=== PATIENT | female | born 1985 | race Caucasian/White ===

== ENCOUNTER 2022-10-20 11:14 | Outpatient (CLI) | payer BC ==
[2022-10-20 12:04] LABS: THYROID STIMULATING HORMONE 2.08 uIU/mL (0.34-5.60)
[2022-10-20 12:09] LABS: PROLACTIN 3.34 ng/mL
[2022-10-20 12:31] LABS: FOLLICLE STIMULATING HORMONE 21.2 mIU/mL
[2022-10-20 12:32] LABS: LUTEINIZING HORMONE 5.48 mIU/mL
[2022-10-21 07:10] LABS: ESTRADIOL 14.4 pg/mL (.); PROGESTERONE 0.1 ng/mL (.)
[2022-10-21 19:07] LABS: FREE TESTOSTERONE(DIRECT) 2.7 pg/mL (0.0-4.2); SEX HORM BINDING GLOB SERUM 33.1 nmol/L (24.6-122.0)
== END 2022-10-20 11:15 | disposition home or self-care (01) ==
LOC: LAB 11:14
PROVIDERS: ATTEND Nurse Practitioner
DX: N92.6 Irregular menstruation, unspecified (principal)
CPT/HCPCS: 36415; 82397; 82627; 82670; 83001; 83002; 83498; 84144; 84146; 84270; 84402; 84403; 84443

== ENCOUNTER 2022-11-05 08:00 | Outpatient (CLI) | payer BC ==
[2022-11-05 22:04] LABS: BACTERIAL VAGINOSIS DNA NEGATIVE (NEGATIVE); CANDIDA GLABRATA DNA NEGATIVE (NEGATIVE); CANDIDA GROUP DNA NEGATIVE (NEGATIVE); CANDIDA KRUSEI DNA NEGATIVE (NEGATIVE); TRICHOMONAS VAGINALIS DNA NEGATIVE (NEGATIVE)
[2022-11-06 00:29] LABS: CHLAMYDIA TRACHOMATIS DNA NEGATIVE (NEGATIVE); NEISSERIA GONORRHOEAE DNA NEGATIVE (NEGATIVE)
== END 2022-11-05 23:59 | disposition home or self-care (01) ==
LOC: LAB.WC 08:00
PROVIDERS: ATTEND Nurse Practitioner
DX: Z11.3 Encounter for screening for infections with a predominantly sexual mode of transmission (principal)
CPT/HCPCS: 81514; 87491; 87591; 87661

== ENCOUNTER 2022-11-11 06:56 | Outpatient (CLI) | payer BC ==
--- NOTE | 2022-11-11 10:19 | Ultrasound Report ---
PROCEDURE: Pelvic w/Transvaginal INDICATIONS: IRREGULAR MENSTRATION TECHNIQUE: Real-time scanning was performed of the pelvic organs, with image documentation. Additional endovagi nal scanning was necessary due to incomplete visualization of the adnexal and endometrial structures by transabdominal scanning. COMPARISON: None. FINDINGS: Uterus: Uterus is anteverted and normal in size at 6.8 x 3.6 x 5.6 cm. The myometrium is homogeneou s. The endometrium measures 12 mm in combined thickness. Ovaries: The right ovary measures 3.7 x 2.9 x 3.4 cm, with a calculated ovarian volume of 19 cc. Th e left ovary measures 2.5 x 1.9 x 1.2 cm, with a calculated ovarian volume of cc. The ovaries have a normal sonographic appearance. Less than 12 follicles can be seen in each ovary. No adnexal masses are seen. Right ovarian cystic lesion as follows: Ovarian Lesion 1: Right ovary. Size: 3.2 cm. (Size >10 cm, O-RADS 3-5 features.) Composition: Unilocular cystic (O-RADS 2). Wall: Smooth (O-RADS 2 features) Septations: None (O-RADS 2 features). Papillary projections: None (O-RADS 2 features). O-RADS score and recommendations: O-RADS 2 - follow up in 8-12 weeks. Other: No pathologic free abdominal or pelvic fluid. IMPRESSION: O-RADS 2 right ovarian cystic lesion. Recommend follow-up in 8-12 weeks. Endometrial stripe measures 12 mm, within normal limits. Reviewed by: Jacinto Brito on 11/11/2022 10:18 AM PDT Approved by: Jacitno Brito on 11/11/2022 10:18 AM PDT Station ID: [id number]
== END 2022-11-11 06:57 | disposition home or self-care (01) ==
LOC: DI 06:56
PROVIDERS: ATTEND Nurse Practitioner
DX: N92.6 Irregular menstruation, unspecified (principal); Z71.89 Other specified counseling; N83.201 Unspecified ovarian cyst, right side

== ENCOUNTER 2022-11-18 13:39 | Outpatient (CLI) | payer BC ==
[2022-11-19 04:08] LABS: HBsAG SCREEN Negative (Negative); RPR Non Reactive (Non Reactive)
[2022-11-19 13:10] LABS: HSV 1 IGG TYPE SPEC <0.91 index (0.00-0.90); HSV 2 IGG TYPE SPEC <0.91 index (0.00-0.90)
[2022-11-19 15:09] LABS: HCV AB Non Reactive (Non Reactive)
[2022-11-19 16:08] LABS: HIV SCREEN 4TH GENERATION Non Reactive (Non Reactive)
== END 2022-11-18 13:40 | disposition home or self-care (01) ==
LOC: LAB 13:39
PROVIDERS: ATTEND Nurse Practitioner
DX: Z11.3 Encounter for screening for infections with a predominantly sexual mode of transmission (principal)
CPT/HCPCS: 36415; 86592; 86695; 86696; 86803; 87340; 87389

== ENCOUNTER 2023-01-04 12:26 | Outpatient (CLI) | payer BC | END 2023-01-04 12:27 | disposition home or self-care (01) | LOC: LAB 12:26 | PROVIDERS: ATTEND Obstetrics & Gynecology Reproductive Endocrinology | DX: Z31.41 Encounter for fertility testing (principal) | CPT/HCPCS: 36415; 82670; 83001 ==

== ENCOUNTER 2023-02-28 12:45 | Outpatient (CLI) | payer BC ==
[2023-02-28 13:05] LABS: BASOPHILS # (AUTO) 0.1 10^3/uL (0.0-0.1); BASOPHILS % (AUTO) 0.6 %; EOSINOPHILS # (AUTO) 0.1 10^3/uL (0.0-0.7); EOSINOPHILS % (AUTO) 0.9 %; HGB - HEMOGLOBIN 13.2 g/dL (12.0-16.0); LYMPHOCYTES # (AUTO) 2.4 10^3/uL (1.5-3.5); MEAN CORPUSCULAR HEMOGLOBIN 29.4 pg (27.0-31.0); MEAN CORPUSCULAR HGB CONC 32.2 g/dL (32.0-36.0); MEAN CORPUSCULAR VOLUME 91.3 fL (81.0-99.0); MEAN PLATELET VOLUME 9.8 fL (7.9-10.8); MONOCYTES # (AUTO) 0.7 10^3/uL (0.0-1.0); MONOCYTES % (AUTO) 6.2 %; NEUTROPHILS # (AUTO) 7.6 10^3/uL (1.5-6.6); PLT - PLATELET COUNT 310 10^3/uL (130-450); RED BLOOD COUNT 4.49 10^6/uL (4.20-5.40); WHITE BLOOD COUNT 10.8 x10^3/uL (4.8-10.8)
--- NOTE | 2023-02-28 18:48 | Ultrasound Report ---
PROCEDURE: OB First Trimester w/TV INDICATIONS: POSITIVE TEST OUTSIDE/PRIOR DATING DATA: Last menstrual period (LMP): 01/02/2023. LMP-based estimated date of delivery (SIVAN): 10/09/2023. First dating scan (date and location): 02/28/2023. Estimated date of delivery (SIVAN) from first dating scan: 10/10/2023. TECHNIQUE: Real-time scanning was performed of the fetus and maternal pelvic organs, with image documentation. Endovaginal scanning was also performed to better visualize the fetus and maternal ovaries. COMPARISON: None. FINDINGS: Intrauterine gestational sac present. Embryo: [place]-rump length 1.61 cm corresponds with an 8 week 0 day gestation Heart rate: 171 bpm. Other: No perigestational fluid collection. Measurement variability in dating: +/- 4 weeks by LMP, +/- 7 days by mean sac diameter (use before 6 weeks gestation if crown-rump length not able to be measured), +/- 5 days by crown-rump length (6-12 weeks gestation). Maternal organs: Ovaries appear within normal limits. 1.8 cm right ovarian corpus luteum cyst. No ad nexal mass. IMPRESSION: Single live intrauterine corresponds with 8 week 0 day gestation Reviewed by: Vaughn Grimes MD on 02/28/2023 5:47 PM MARIEL Approved by: Vaughn Grimes MD on 02/28/2023 5:47 PM MARIEL Station ID: [id number]
[2023-03-01 03:09] LABS: HBsAG SCREEN Negative (Negative)
[2023-03-01 07:10] LABS: HIV SCREEN 4TH GENERATION Non Reactive (Non Reactive)
[2023-03-01 08:09] LABS: HCV AB Non Reactive (Non Reactive)
[2023-03-01 09:09] LABS: VARICELLA-ZOSTER AB IGG <135 index (Immune >165)
[2023-03-02 03:11] LABS: RPR Non Reactive (Non Reactive)
== END 2023-02-28 12:46 | disposition home or self-care (01) ==
LOC: DI 12:45
PROVIDERS: ATTEND Obstetrics & Gynecology
DX: Z34.91 Encounter for supervision of normal pregnancy, unspecified, first trimester (principal); Z3A.08 8 weeks gestation of pregnancy
CPT/HCPCS: 36415; 85025; 86592; 86762; 86787; 86803; 86850; 86900; 86901; 87340; 87389

== ENCOUNTER 2023-03-23 08:00 | Outpatient (CLI) | payer BC ==
[2023-03-23 15:17] LABS: CHLAMYDIA TRACHOMATIS DNA NEGATIVE (NEGATIVE); NEISSERIA GONORRHOEAE DNA NEGATIVE (NEGATIVE); TRICHOMONAS VAGINALIS DNA NEGATIVE (NEGATIVE)
== END 2023-03-23 23:59 | disposition home or self-care (01) ==
LOC: LAB.WC 08:00
PROVIDERS: ATTEND Nurse Practitioner
DX: Z11.3 Encounter for screening for infections with a predominantly sexual mode of transmission (principal)
CPT/HCPCS: 87491; 87591; 87661

== ENCOUNTER 2023-03-29 13:27 | Outpatient (CLI) | payer BC | END 2023-03-29 13:28 | disposition home or self-care (01) | LOC: LAB 13:27 | PROVIDERS: ATTEND Nurse Practitioner | DX: Z53.9 Procedure and treatment not carried out, unspecified reason (principal) ==

== ENCOUNTER 2023-05-20 13:47 | Outpatient (CLI) | payer BC ==
--- NOTE | 2023-05-20 15:56 | Ultrasound Report ---
PROCEDURE: OB Detailed Eval INDICATIONS: SUPERVISION OF OUTSIDE/PRIOR DATING DATA: Last menstrual period (LMP): 01/02/2023. LMP-based estimated date of delivery (SIVAN): 10/09/2023. First dating scan (date and location): 02/28/2023. Estimated date of delivery (SIVAN) from first dating scan: 10/10/2023. The below data below was generated using the ultrasound SIVAN of 10/10/2023 TECHNIQUE: Real-time scanning was performed of the fetus, with image documentation and biometric measurements. Endovaginal scanning: Not performed COMPARISON: Ultrasound 02/28/2023 FINDINGS: General: A single living intrauterine gestation is present. Presentation: Cephalic Placenta: Placental position is fundal, without previa. Amniotic fluid index: 13.8 cm, within normal limits for gestational age. heart rate: 150 beats per minute. Maternal cervical canal: 3.1 cm long; normal length is 2.5 cm or more. biometrics: Biparietal diameter: 4.7 cm, 20 weeks and 3 days Head circumference: 18.1 cm, 20 weeks and 4 days Abdominal circumference: 15.3 cm, 20 weeks and 4 days Femur length: 3.2 cm, 20 weeks and 2 days Estimated gestational age from initial scan: 19 weeks and 5 days Composite gestational age from present scan: 20 weeks and 2 days Estimated weight and percentile: 354 g, 85th percentile Measurement variability in biometric dating: +/- 10 days from 12-20 weeks gestation, +/- 2 weeks from 20-30 weeks gestation, +/- 3 weeks at 30 weeks gestation or later. Anatomic survey: Neuro: Ventricles are normal at less than 10 mm. Cisterna magna is normal at 3-11 mm. Cerebellum i s normal in size and morphology. Nuchal skin fold: Normal at less than 6 mm between 14 and 20 weeks gestational age. Face: Nose and lips, facial profile are normal. Spine: No evidence for spina bifida. Heart: 4-chambered heart is present, with normal ventricular outflow tracts. Diaphragm: Diaphragm is intact. Stomach: Left-sided stomach is present. Kidneys: No hydronephrosis. Normal is less than 5 mm in 2nd trimester, less than 7 mm in 3rd trimester. Cord: 3 vessel cord has orthotopic insertion. Bladder: Normal in size. Extremities: All 4 extremities are visualized. IMPRESSION: 1.Single live intrauterine consistent with 20 weeks and 2 days. 2.Normal anatomic survey. Reviewed by: Michael Deng MD on 05/20/2023 3:55 PM PDT Approved by: Michael Deng MD on 05/20/2023 3:55 PM PDT Station ID: [id number]
== END 2023-05-20 13:48 | disposition home or self-care (01) ==
LOC: DI 13:47
PROVIDERS: ATTEND Obstetrics & Gynecology
DX: Z34.92 Encounter for supervision of normal pregnancy, unspecified, second trimester (principal)

== ENCOUNTER 2023-05-26 10:46 | Outpatient (CLI) | payer BC ==
[2023-05-26 11:10] LABS: BASOPHILS # (AUTO) 0.1 10^3/uL (0.0-0.1); BASOPHILS % (AUTO) 0.5 %; EOSINOPHILS # (AUTO) 0.1 10^3/uL (0.0-0.7); EOSINOPHILS % (AUTO) 1.1 %; HGB - HEMOGLOBIN 11.6 g/dL (12.0-16.0); LYMPHOCYTES # (AUTO) 2.1 10^3/uL (1.5-3.5); LYMPHOCYTES % (AUTO) 17.9 %; MEAN CORPUSCULAR HEMOGLOBIN 29.4 pg (27.0-31.0); MEAN CORPUSCULAR HGB CONC 32.2 g/dL (32.0-36.0); MEAN CORPUSCULAR VOLUME 91.1 fL (81.0-99.0); MONOCYTES # (AUTO) 0.7 10^3/uL (0.0-1.0); MONOCYTES % (AUTO) 5.5 %; NEUTROPHILS # (AUTO) 8.8 10^3/uL (1.5-6.6); NEUTROPHILS % (AUTO) 74.3 %; PLT - PLATELET COUNT 313 10^3/uL (130-450); RED BLOOD COUNT 3.95 10^6/uL (4.20-5.40); RED CELL DISTRIBUTION WIDTH 13.3 % (12.0-15.0); WHITE BLOOD COUNT 11.9 x10^3/uL (4.8-10.8)
[2023-05-26 11:11] LABS: ALBUMIN 3.7 g/dL (3.2-5.5); ALBUMIN/GLOBULIN RATIO 1.3 (1.0-2.2); BILIRUBIN,TOTAL 0.2 mg/dL (0.2-1.0); CALCIUM 9.5 mg/dL (8.5-10.3); CREATININE 0.6 mg/dL (0.6-1.3); POTASSIUM 4.1 mmol/L (3.5-4.5); TOTAL PROTEIN 6.5 g/dL (6.4-8.9); URIC ACID 4.3 mg/dL (2.3-6.6)
[2023-05-26 11:58] LABS: CREATININE,URINE 68.3 mg/dL; PROTEIN/CREATININE RATIO,URINE 0.1 (<=0.2)
== END 2023-05-26 10:47 | disposition home or self-care (01) ==
LOC: LAB 10:46
PROVIDERS: ATTEND Nurse Practitioner
DX: R03.0 Elevated blood-pressure reading, without diagnosis of hypertension (principal)
CPT/HCPCS: 36415; 80053; 82570; 84156; 84550; 85025

== ENCOUNTER 2023-06-24 15:01 | Outpatient (CLI) | payer BC ==
[2023-06-24 17:54] LABS: BACTERIAL VAGINOSIS DNA NEGATIVE (NEGATIVE); CANDIDA GLABRATA DNA NEGATIVE (NEGATIVE); CANDIDA GROUP DNA NEGATIVE (NEGATIVE); CANDIDA KRUSEI DNA NEGATIVE (NEGATIVE); TRICHOMONAS VAGINALIS DNA NEGATIVE (NEGATIVE)
== END 2023-06-24 15:02 | disposition home or self-care (01) ==
LOC: LAB 15:01
PROVIDERS: ATTEND Nurse Practitioner
DX: N89.8 Other specified noninflammatory disorders of vagina (principal)
CPT/HCPCS: 81514

== ENCOUNTER 2023-07-13 09:17 | Outpatient (CLI) | payer BC ==
[2023-07-13 11:24] VITALS: BP 124/76; O2SAT 98
[2023-07-13 11:41] LABS: CREATININE,URINE 65.7 mg/dL; PROTEIN/CREATININE RATIO,URINE 0.1 (<=0.2)
[2023-07-13 12:08] LABS: BASOPHILS # (AUTO) 0.1 10^3/uL (0.0-0.1); BASOPHILS % (AUTO) 0.5 %; EOSINOPHILS # (AUTO) 0.1 10^3/uL (0.0-0.7); EOSINOPHILS % (AUTO) 0.7 %; HCT - HEMATOCRIT 35.3 % (37.0-47.0); HGB - HEMOGLOBIN 11.4 g/dL (12.0-16.0); LYMPHOCYTES # (AUTO) 1.8 10^3/uL (1.5-3.5); LYMPHOCYTES % (AUTO) 16.5 %; MEAN CORPUSCULAR HEMOGLOBIN 29.5 pg (27.0-31.0); MEAN CORPUSCULAR HGB CONC 32.3 g/dL (32.0-36.0); MEAN CORPUSCULAR VOLUME 91.5 fL (81.0-99.0); MEAN PLATELET VOLUME 10.1 fL (7.9-10.8); MONOCYTES # (AUTO) 0.6 10^3/uL (0.0-1.0); MONOCYTES % (AUTO) 5.1 %; NEUTROPHILS # (AUTO) 8.2 10^3/uL (1.5-6.6); NEUTROPHILS % (AUTO) 76.5 %; PLT - PLATELET COUNT 323 10^3/uL (130-450); RED BLOOD COUNT 3.86 10^6/uL (4.20-5.40); RED CELL DISTRIBUTION WIDTH 13.2 % (12.0-15.0); WHITE BLOOD COUNT 10.7 x10^3/uL (4.8-10.8)
[2023-07-13 12:36] LABS: ALBUMIN 3.6 g/dL (3.2-5.5); ALBUMIN/GLOBULIN RATIO 1.2 (1.0-2.2); BILIRUBIN,TOTAL 0.3 mg/dL (0.2-1.0); CALCIUM 9.4 mg/dL (8.5-10.3); CREATININE 0.5 mg/dL (0.6-1.3); POTASSIUM 3.8 mmol/L (3.5-4.5); TOTAL PROTEIN 6.5 g/dL (6.4-8.9)
--- NOTE | 2023-07-13 14:12 | Ultrasound Report ---
PROCEDURE: Abdomen Limited INDICATIONS: RUQ pain, evaluate gall bladder. 27 weeks pregnan TECHNIQUE: Real-time focused scanning was performed of the abdomen, with image documentation. COMPARISONS: OB ultrasound 05/20/2023 FINDINGS: Liver: Liver is normal in size and homogeneous in echotexture. Gallbladder: Unremarkable. Biliary ducts: Intrahepatic bile ducts are non-dilated. Extrahepatic bile duct caliber measures 3 m m. Normal is 6-7 mm or less in diameter, or 10 mm or less post-cholecystectomy. Pancreas: Visualized portions of the pancreas are sonographically normal. Right kidney: Normal in size and echotexture. Right kidney measures 10.9 cm long. No hydronephrosis or nephrolithiasis. No solid masses. No complex renal cystic lesions which require follow-up. Aorta: Visualized aorta is normal in caliber at less than 3 cm. IVC: Intrahepatic inferior vena cava is patent. Miscellaneous: No free abdominal fluid. IMPRESSION: Unremarkable abdominal ultrasound. Reviewed by: Kelly Vaca MD on 07/13/2023 2:11 PM PST Approved by: Kelly Vaca MD on 07/13/2023 2:11 PM PST Station ID: [id number]
--- NOTE | 2023-07-14 10:28 | PROVIDER PROGRESS NOTE ---
- HPI Chief Complaint: Other (RUQ pain.) Current : Vital Signs Temperature 98.0 F 07/13/23 09:25 Heart Rate 92 07/13/23 09:25 Respiratory Rate 18 07/13/23 09:25 Blood Pressure 136/72 H 07/13/23 09:25 Temperature 97.6 F L 07/13/23 11:17 Heart Rate 86 07/13/23 11:17 Respiratory Rate 18 07/13/23 11:17 Blood Pressure 124/76 07/13/23 11:17 O2 Saturation 98 07/13/23 11:17 If not protocol: Oxygen Flow, liters/minute - Exam Patient is at 27 w 3 d presents with right upper quadrant pain. seems like musculoskelatal to her. 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 under ribs and a bit lower. baby is moving well. does not feel like contractions. on evaluation in triage, vss. bp < 140/90, FHT normal for gestational age. no contractions on monitor. patient is uncomfortable resting on the bed. abdominal exam: tender over ribs in RUQ of abd. seems also tender under the ribs. no rebound or guarding. fundus does not feel tender and there are not palpable contractions. - Procedures Findings: labs are normal, except elevated sugar. RUQ ultrasound to rule out any gallbladder or renal issue causing pain and is negative. - Plan Plan: seems pain is from ribs - musculoskelatal. discharge home. ok to return to work. recommend heat or cold, consider chiropractor to help with rib pain. tylenol prn.
== END 2023-07-13 13:45 | disposition home or self-care (01) ==
LOC: WFO 09:17 → FBP 09:18 → WFO 13:45
PROVIDERS: ATTEND Obstetrics & Gynecology
DX: O99.891 Other specified diseases and conditions complicating pregnancy (principal); R10.11 Right upper quadrant pain; Z3A.27 27 weeks gestation of pregnancy
CPT/HCPCS: 36415; 80053; 82570; 82950; 84156; 85025; 99214; 99215

== ENCOUNTER 2023-07-18 09:10 | Outpatient (CLI) | payer BC ==
[2023-07-18 10:42] LABS: HGB - HEMOGLOBIN 11.5 g/dL (12.0-16.0); MEAN CORPUSCULAR HEMOGLOBIN 29.2 pg (27.0-31.0); MEAN CORPUSCULAR HGB CONC 31.9 g/dL (32.0-36.0); MEAN CORPUSCULAR VOLUME 91.4 fL (81.0-99.0); MEAN PLATELET VOLUME 9.7 fL (7.9-10.8); RED BLOOD COUNT 3.94 10^6/uL (4.20-5.40); RED CELL DISTRIBUTION WIDTH 13.3 % (12.0-15.0); WHITE BLOOD COUNT 10.9 x10^3/uL (4.8-10.8)
== END 2023-07-18 09:11 | disposition home or self-care (01) ==
LOC: LAB 09:10
PROVIDERS: ATTEND Nurse Practitioner
DX: O99.810 Abnormal glucose complicating pregnancy (principal); O09.529 Supervision of elderly multigravida, unspecified trimester; Z36.89 Encounter for other specified antenatal screening
CPT/HCPCS: 36415; 82950; 85027; 86850

== ENCOUNTER 2023-08-02 18:45 | Outpatient (CLI) | payer BC ==
--- NOTE | 2023-08-03 11:01 | Ultrasound Report ---
PROCEDURE: OB Follow up INDICATIONS: ABN GLUCOSE TEST OUTSIDE/PRIOR DATING DATA: Last menstrual period (LMP): 01/02/2023. LMP-based estimated date of delivery (SIVAN): 10/09/2023. First dating scan (date and location): 02/28/2023. Estimated date of delivery (SIVAN) from first dating scan: 10/10/2023. The below data below was generated using the ultrasound SIVAN of 10/10/2023 TECHNIQUE: Real-time scanning was performed of the fetus, with image documentation and biometric measurements. Endovaginal scanning: Not performed. COMPARISON: 05/20/2023 FINDINGS: General: A single living intrauterine gestation is present. Presentation: Vertex Placenta: Placental position is posterior, without previa. Amniotic fluid index: 18.2 cm, within normal limits for gestational age. heart rate: 153 beats per minute. Maternal cervical canal: Not well seen at late stage of biometrics: Biparietal diameter: 8.05 cm, 32 weeks 2 days, 93.1 percentile Head circumference: 30.46 cm, 33 weeks 6 days, 97.1 percentile Abdominal circumference: 28.34 cm, 32 weeks 3 days, 94.8 percentile Femur length: 6.11 cm, 31 weeks 5 days, 78.8 percentile Estimated gestational age from initial scan: 30 weeks 1 day Composite gestational age from present scan: 32 weeks 4 days Estimated weight and percentile: 1950.2 g, 96.5 percentile Measurement variability in biometric dating: +/- 10 days from 12-20 weeks gestation, +/- 2 weeks from 20-30 weeks gestation, +/- 3 weeks at 30 weeks gestation or more. Other: Not applicable. IMPRESSION: 1. Living third trimester intrauterine with no sonographic evidence of complications. 2. Current ultrasound age is 17 days greater than clinical age based on initial first trimester ultra sound. Reviewed by: Francis Shaw MD on 08/03/2023 10:59 AM PST Approved by: Francis Shaw MD on 08/03/2023 10:59 AM PST Station ID: [id number]
== END 2023-08-02 18:46 | disposition home or self-care (01) ==
LOC: DI 18:45
PROVIDERS: ATTEND Nurse Practitioner
DX: O99.810 Abnormal glucose complicating pregnancy (principal); Z3A.32 32 weeks gestation of pregnancy

== ENCOUNTER 2023-08-18 11:21 | Outpatient (CLI) | payer BC ==
[2023-08-18 11:34] VITALS: O2SAT 98
[2023-08-18 12:23] LABS: BILIRUBIN,URINE NEGATIVE (NEGATIVE); GLUCOSE, URINE (UA) NEGATIVE (NEGATIVE); KETONES,URINE (UA) 15 mg/dL (NEGATIVE); LEUKOCYTE ESTERASE, URINE NEGATIVE (NEGATIVE); NITRITE,URINE NEGATIVE (NEGATIVE); OCCULT BLOOD,URINE NEGATIVE (NEGATIVE); PROTEIN,URINE NEGATIVE (NEGATIVE); UROBILINOGEN,URINE 0.2 (NORMAL) E.U./dL (NORMAL)
[2023-08-18 12:26] LABS: CLARITY,URINE HAZY (CLEAR); RBC,URINE None Seen /HPF (0-5); SQUAMOUS EPITHELIAL CELL,UR MOD Squamous (<= Few); WBC,URINE 0-3 /HPF (0-5)
[2023-08-18 12:27] LABS: BACTERIA,URINE Few /HPF (None Seen)
--- NOTE | 2023-08-18 12:59 | PROVIDER PROGRESS NOTE ---
- HPI Chief Complaint: Labor Current : Vital Signs Temperature 99.3 F 08/18/23 11:32 Heart Rate 87 08/18/23 11:32 Respiratory Rate 17 08/18/23 11:32 Blood Pressure 130/77 08/18/23 11:32 O2 Saturation 98 08/18/23 11:32 Temperature 97.8 F 08/18/23 12:17 Heart Rate 87 08/18/23 11:32 Respiratory Rate 17 08/18/23 11:32 Blood Pressure 130/77 08/18/23 11:32 O2 Saturation 98 08/18/23 11:32 If not protocol: Oxygen Flow, liters/minute - Procedures OB Procedure Performed: NST Diagnosis/Indication for NST: labor NST Procedure: NST Procedure Start Date 08/18/23 Start Time 12:10 Stop Time 12:30 Vibroacoustic Stimulation Used No Patient States Movement Yes - Plan Plan: Patient is a 37-year-old -0-1-0 at 32 weeks 4 days gestation who presented today for an acute visit due to back pain. She says starting last night she had back pain around her back feels her abdomen tightening and low pelvic pressure. She feels good movement. No leaking or bleeding. She does say she has been under a lot of stress. Work is getting more difficult for her being uncomfortable and does not know if she can handle this with current significant pain. The pain does come and go and will have several contraction type feelings close together then space out. Her mother was in a car accident and had a stroke and is still in the hospital. Her sister is spent time with her mother now. This is difficult as there is was to support her during labor as [place]. Physical Exam Constitutional: alert, no acute distress, well hydrated, well developed, well nourished, appropriate dress. Cardiovascular: Regular rate and rhythm. Respiratory: no respiratory distress. Abdomen: nondistended, nontender, no guarding. Psych: affect and mood appropriate, normal interaction, good eye contact. SVE: 0/0/-3 FHT: 145 beats per baseline, moderate variability, accelerations present, no decelerations. Reactive NST [place]: Periods of quiescence followed by contraction approximate every 4 to 8 minutes. Irregular contractions that come in waves. Cervical length: 4.5 cm UA unremarkable Vaginosis swab unremarkable Assessment and plan 37-year-old -0-1-0 at 32 weeks gestation with false labor 1. False labor -Observed in triage for approximately 5 hours with 3 cervical exam showing closed cervix. Cervical length showing 4.5 cm which is highly correlated with not going into labor and discussed this with patient. -Discussed that contractions are not rare and that most do not progress to delivery. Encouraged precautions as she lives alone and should call with any change in status. -Can try 1 dose of nifedipine to see if she has effect. Discussed we do not usually do this, due to her significant discomfort with contractions, will like to try dose. -She has rearrange her work schedule to have tomorrow off. Discussed that her life stressors may be causing her more pains. Encouraged hydration, pain control with Tylenol, warm baths. 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
[2023-08-18 14:21] LABS: BACTERIAL VAGINOSIS DNA NEGATIVE (NEGATIVE); CANDIDA GLABRATA DNA NEGATIVE (NEGATIVE); CANDIDA GROUP DNA NEGATIVE (NEGATIVE); CANDIDA KRUSEI DNA NEGATIVE (NEGATIVE); TRICHOMONAS VAGINALIS DNA NEGATIVE (NEGATIVE)
[2023-08-18] MEDS: NIFEdipine ER 30 MG TABLET PO ONE (16:39)
[2023-08-18 16:44] VITALS: BP 139/74
--- NOTE | 2023-08-18 17:23 | Ultrasound Report ---
PROCEDURE: OB Limited INDICATIONS: ctx OUTSIDE/PRIOR DATING DATA: Last menstrual period (LMP): 01/02/2023. LMP-based estimated date of delivery (SIVAN): 10/09/2023. First dating scan (date and location): 02/28/2023. Estimated date of delivery (SIVAN) from first dating scan: 10/10/2023. The below data below was generated using the ultrasound SIVAN of 10/10/2023 TECHNIQUE: Real-time scanning was performed of the fetus, with image documentation. Endovaginal scanning: Performed COMPARISON: None. FINDINGS: A single living intrauterine gestation is present. Presentation: Vertex Placenta: Not evaluated. Amniotic fluid index not evaluated heart rate: 136 beats per minutes. Maternal cervical canal: 4.6 cm long; normal length is 2.5 cm or more. IMPRESSION: Cervix is long and closed, measuring 4.6 cm. Reviewed by: Jacinto Brito MD on 08/18/2023 5:21 PM PST Approved by: Jacinto Brito MD on 08/18/2023 5:21 PM PST Station ID: [id number]
== END 2023-08-18 17:11 | disposition home or self-care (01) ==
LOC: WFO 11:21 → FBP 11:22 → WFO 17:11
PROVIDERS: ATTEND Obstetrics & Gynecology
DX: O47.03 False labor before 37 completed weeks of gestation, third trimester (principal); O99.810 Abnormal glucose complicating pregnancy; Z3A.32 32 weeks gestation of pregnancy; O99.891 Other specified diseases and conditions complicating pregnancy; M54.9 Dorsalgia, unspecified; O99.343 Other mental disorders complicating pregnancy, third trimester; F43.9 Reaction to severe stress, unspecified
CPT/HCPCS: 59025; 76815; 81001; 81514; 99215; A9270; 87086

== ENCOUNTER 2023-08-22 09:38 | Outpatient (CLI) | payer BC ==
[2023-08-22 10:48] VITALS: BP 118/68
--- NOTE | 2023-08-22 11:30 | PROCEDURE REPORT ---
- HPI Diagnosis/Indication for NST: Gestational Diabetes Current EDU 10/09/23 Gestation 33 Weeks and 1 Days 2 Para 0 Vital Signs Temperature 98.1 F 08/22/23 10:36 Heart Rate 90 08/22/23 10:36 Respiratory Rate 16 08/22/23 10:36 Blood Pressure 118/68 08/22/23 10:36 Temperature 98.1 F 08/22/23 10:36 Heart Rate 90 08/22/23 10:36 Respiratory Rate 16 08/22/23 10:36 Blood Pressure 118/68 08/22/23 10:36 O2 Saturation If not protocol: Oxygen Flow, liters/minute - NST Procedure NST Procedure Start Date 08/22/23 Start Time 09:50 Stop Time 10:36 Vibroacoustic Stimulation Used No Patient States Movement Yes - Results and Plan Plan: Patient is a 37-year-old G2P 33 weeks gestation here for NST. NST Performed 08/22/2023 NST Read 08/22/2023 FHT: 140 bpm baseline, moderate variability, accelerations present, no decelerations. Reactive NST [place]: Occasional Diagnosis 33 weeks gestation Gestational diabetes Continue with scheduled NST.
== END 2023-08-22 10:45 | disposition home or self-care (01) ==
LOC: WFO 09:38 → FBP 09:39 → WFO 10:45
PROVIDERS: ATTEND Obstetrics & Gynecology
DX: O24.419 Gestational diabetes mellitus in pregnancy, unspecified control (principal); Z3A.33 33 weeks gestation of pregnancy
CPT/HCPCS: 59025

== ENCOUNTER 2023-08-25 19:40 | Outpatient (CLI) | payer BC ==
[2023-08-25 20:43] VITALS: BP 121/69
--- NOTE | 2023-08-26 00:48 | PROCEDURE REPORT ---
- HPI Diagnosis/Indication for NST: Gestational Diabetes Current EDU 10/09/23 Gestation 33 Weeks and 4 Days 2 Para 0 Vital Signs Temperature 98.8 F 08/25/23 19:48 Heart Rate 81 08/25/23 19:48 Respiratory Rate 16 08/25/23 19:48 Blood Pressure 121/69 08/25/23 19:48 Temperature 98.8 F 08/25/23 19:48 Heart Rate 81 08/25/23 19:48 Respiratory Rate 16 08/25/23 19:48 Blood Pressure 121/69 08/25/23 19:48 O2 Saturation If not protocol: Oxygen Flow, liters/minute - NST Procedure NST Procedure Start Date 08/25/23 Start Time 19:47 Stop Time 20:18 Vibroacoustic Stimulation Used No Patient States Movement Yes - Results and Plan Findings/Impression: NST: 130 mod [place] + A cells no D cells, reactive Plan: 38yo here for NST 2'2 gestational diabetes at 33w doing well, reactive NST OK to D/C home with precautions and to continue scheduled care.
== END 2023-08-25 20:36 | disposition home or self-care (01) ==
LOC: WFO 19:40 → FBP 19:41 → WFO 20:36
PROVIDERS: ATTEND Obstetrics & Gynecology
DX: O24.419 Gestational diabetes mellitus in pregnancy, unspecified control (principal); Z3A.33 33 weeks gestation of pregnancy
CPT/HCPCS: 59025

== ENCOUNTER 2023-08-26 08:30 | Outpatient (CLI) | payer BC ==
--- NOTE | 2023-08-26 10:52 | Ultrasound Report ---
PROCEDURE: OB Follow up INDICATIONS: ABN GLUCOSE TEST OUTSIDE/PRIOR DATING DATA: Last menstrual period (LMP): 01/02/2023. LMP-based estimated date of delivery (SIVAN): 10/09/2023. First dating scan (date and location): 02/28/2023. Estimated date of delivery (SIVAN) from first dating scan: 10/10/2023. The below data below was generated using the ultrasound SIVAN of 10/06/2023 TECHNIQUE: Real-time scanning was performed of the fetus, with image documentation and biometric measurements. Endovaginal scanning: Not performed. COMPARISON: Most recent exam from 08/18/2023 FINDINGS: General: A single living intrauterine gestation is present. Presentation: Vertex Placenta: Placental position is posterior and fundal, without previa. Amniotic fluid index: 18 cm, largest pocket is 6.8 cm, normal for gestational age. heart rate: 145 beats per minute. Maternal cervical canal: 3.6 cm long; normal length is 2.5 cm or more. biometrics: Biparietal diameter: 8.8 cm, 35 weeks 6 days, 94th percentile Head circumference: 32.4 cm, 36 weeks 5 days, 86th percentile Abdominal circumference: 32.1 cm, 36 weeks 6 days, 97th percentile Femur length: 6.6 cm, 34 weeks 1 day, 51st percentile Estimated gestational age from initial scan: 33 weeks 5 days Composite gestational age from present scan: 35 weeks 5 days Estimated weight and percentile: 2715 g, 91st percentile Measurement variability in biometric dating: +/- 10 days from 12-20 weeks gestation, +/- 2 weeks from 20-30 weeks gestation, +/- 3 weeks at 30 weeks gestation or more. Biophysical profile: Tone: 2/2 Movement: 2/2 Respiration: 2/2 Largest pocket amniotic fluid: 2/2 IMPRESSION: 1. Single live intrauterine with an estimated weight at the 91st percentile. 2. Composite gestational age is 2 weeks ahead of the estimated gestational age. 3. Biophysical profile score is normal. Reviewed by: Devora Barraza MD on 08/26/2023 10:50 AM PST Approved by: Devora Barraza MD on 08/26/2023 10:50 AM PST Station ID: [id number]
--- NOTE | 2023-08-26 11:07 | Ultrasound Report ---
PROCEDURE: OB Biophysical Profile INDICATIONS: ABN GLUCOSE TEST OUTSIDE/PRIOR DATING DATA: Last menstrual period (LMP): 01/02/2023. LMP-based estimated date of delivery (SIVAN): 10/09/2023. First dating scan (date and location): 02/28/2023. Estimated date of delivery (SIVAN) from first dating scan: 10/10/2023. The below data below was generated using the ultrasound SIVAN of 10/06/2023 TECHNIQUE: Real-time scanning was performed of the fetus, with image documentation and biometric measurements. Biophysical profile score was obtained. Endovaginal scanning: Not performed. COMPARISON: Most recent exam from 08/18/2023 FINDINGS: General: A single living intrauterine gestation is present. Presentation: Vertex Placenta: Placental position is posterior and fundal, without previa. Amniotic fluid index: 18 cm, largest pocket is 6.8 cm, normal for gestational age. heart rate: 145 beats per minute. Maternal cervical canal: 3.6 cm long; normal length is 2.5 cm or more. biometrics: Biparietal diameter: 8.8 cm, 35 weeks 6 days, 94th percentile Head circumference: 32.4 cm, 36 weeks 5 days, 86th percentile Abdominal circumference: 32.1 cm, 36 weeks 6 days, 97th percentile Femur length: 6.6 cm, 34 weeks 1 day, 51st percentile Estimated gestational age from initial scan: 33 weeks 5 days Composite gestational age from present scan: 35 weeks 5 days Estimated weight and percentile: 2715 g, 91st percentile Measurement variability in biometric dating: +/- 10 days from 12-20 weeks gestation, +/- 2 weeks from 20-30 weeks gestation, +/- 3 weeks at 30 weeks gestation or more. Biophysical profile: Tone: 2/2 Movement: 2/2 Respiration: 2/2 Largest pocket amniotic fluid: 2/2 IMPRESSION: 1. Single live intrauterine with an estimated weight at the 91st percentile. 2. Composite gestational age is 2 weeks ahead of the estimated gestational age. 3. Biophysical profile score is normal. Reviewed by: Devora Barraza MD on 08/26/2023 11:06 AM PST Approved by: Devora Barraza MD on 08/26/2023 11:06 AM PST Station ID: [id number]
== END 2023-08-26 08:31 | disposition home or self-care (01) ==
LOC: DI 08:30
PROVIDERS: ATTEND Nurse Practitioner
DX: O24.419 Gestational diabetes mellitus in pregnancy, unspecified control (principal); Z3A.35 35 weeks gestation of pregnancy

== ENCOUNTER 2023-08-29 19:32 | Outpatient (CLI) | payer BC ==
[2023-08-29 20:02] VITALS: BP 136/83
--- NOTE | 2023-08-29 20:28 | PROCEDURE REPORT ---
- HPI Current EDU 10/09/23 Gestation 34 Weeks and 1 Days 2 Para 0 Vital Signs Temperature 99 F 08/29/23 19:46 Heart Rate 97 08/29/23 19:46 Respiratory Rate 16 08/29/23 19:46 Blood Pressure 136/83 H 08/29/23 19:46 Temperature 99 F 08/29/23 19:46 Heart Rate 97 08/29/23 19:46 Respiratory Rate 16 08/29/23 19:46 Blood Pressure 136/83 H 08/29/23 19:46 O2 Saturation If not protocol: Oxygen Flow, liters/minute - NST Procedure NST Procedure Start Date 08/29/23 Start Time 19:41 Stop Time 20:04 Vibroacoustic Stimulation Used No Patient States Movement Yes - Results and Plan Plan: Patient is a 38-year-old G2, P0 at 34 weeks 1 day gestation here for NST. NST Performed 08/29/2023 NST Read 08/29/2023 FHT: 145 bpm baseline, moderate variability, accelerations present, no decelerations. Reactive NST [place]: Quiescent Diagnosis 34 weeks gestation Gestational diabetes Continue with scheduled NST.
== END 2023-08-29 20:09 | disposition home or self-care (01) ==
LOC: WFO 19:32 → FBP 19:34 → WFO 20:09
PROVIDERS: ATTEND Obstetrics & Gynecology
DX: O24.419 Gestational diabetes mellitus in pregnancy, unspecified control (principal); Z3A.34 34 weeks gestation of pregnancy
CPT/HCPCS: 59025

== ENCOUNTER 2023-09-01 09:53 | Outpatient (CLI) | payer BC ==
[2023-09-01 10:14] VITALS: BP 121/56
--- NOTE | 2023-09-01 13:05 | PROCEDURE REPORT ---
- HPI Current EDU 10/09/23 Gestation 34 Weeks and 4 Days 2 Para 0 Vital Signs Temperature 98.1 F 09/01/23 10:05 Heart Rate 97 09/01/23 10:05 Respiratory Rate 16 09/01/23 10:05 Blood Pressure 121/56 L 09/01/23 10:05 Temperature 98.1 F 09/01/23 10:05 Heart Rate 97 09/01/23 10:05 Respiratory Rate 16 09/01/23 10:05 Blood Pressure 121/56 L 09/01/23 10:05 O2 Saturation If not protocol: Oxygen Flow, liters/minute - NST Procedure NST Procedure Start Date 09/01/23 Start Time 10:00 Stop Time 10:28 Vibroacoustic Stimulation Used No Patient States Movement Yes - Results and Plan Plan: Patient is a 38-year-old -0-1-0 at 34 weeks 4 days gestation here for NST. NST Performed 09/01/2023 NST Read 09/01/2023 FHT: 150 bpm baseline, moderate variability, accelerations present, no decelerations. Reactive NST [place]: Quiescent Diagnosis 34 weeks gestation Gestational diabetes, A1 Continue with scheduled NST.
== END 2023-09-01 10:45 | disposition home or self-care (01) ==
LOC: WFO 09:53 → FBP 09:54 → WFO 10:45
PROVIDERS: ATTEND Obstetrics & Gynecology
DX: O24.410 Gestational diabetes mellitus in pregnancy, diet controlled (principal); Z3A.34 34 weeks gestation of pregnancy
CPT/HCPCS: 59025

== ENCOUNTER 2023-09-05 09:59 | Outpatient (CLI) | payer BC ==
[2023-09-05 10:26] VITALS: BP 118/64
--- NOTE | 2023-09-05 18:08 | PROCEDURE REPORT ---
- HPI Diagnosis/Indication for NST: Gestational Diabetes Current EDU 10/09/23 Gestation 35 Weeks and 1 Days 2 Para 0 Vital Signs Temperature 98.2 F 09/05/23 10:05 Heart Rate 91 09/05/23 10:05 Respiratory Rate 18 09/05/23 10:05 Blood Pressure 118/64 09/05/23 10:05 Temperature 98.2 F 09/05/23 10:05 Heart Rate 91 09/05/23 10:05 Respiratory Rate 18 09/05/23 10:05 Blood Pressure 118/64 09/05/23 10:05 O2 Saturation If not protocol: Oxygen Flow, liters/minute - NST Procedure NST Procedure Start Date 09/05/23 Start Time 10:10 Stop Time 10:32 Vibroacoustic Stimulation Used No Patient States Movement Yes - Results and Plan Plan: Patient is a 38-year-old -0-1-0 at 35 weeks 1 day gestation here for NST. NST Performed 09/05/2023 NST Read 09/05/2023 FHT: 145 bpm baseline, moderate variability, accelerations present, no decelerations. Reactive NST [place]: Occasional Diagnosis 35 weeks gestation Gestational diabetes Continue with scheduled NST.
== END 2023-09-05 10:45 | disposition home or self-care (01) ==
LOC: WFO 09:59 → FBP 10:01 → WFO 10:45
PROVIDERS: ATTEND Obstetrics & Gynecology
DX: O24.419 Gestational diabetes mellitus in pregnancy, unspecified control (principal); Z3A.35 35 weeks gestation of pregnancy
CPT/HCPCS: 59025

== ENCOUNTER 2023-09-09 09:55 | Outpatient (CLI) | payer BC ==
[2023-09-09 10:12] VITALS: BP 105/52; O2SAT 97
--- NOTE | 2023-09-09 17:44 | Labor Flowsheet ---
Labor Flowsheet Datetime Report Generated by CPN: 09/09/2023 17:43 Datetime: 09/09/2023 17:39 VITAL SIGNS NBP Sys/Yamile/Mean (mmHg): 132 : 77 : 88 Pulse: 93 SpO2 (%): 97 LaborFlag: OB Triage Datetime: 09/09/2023 10:26 COMMUNICATION Communication: Call/Page Placed to Provider Communication Comments: Pt. has BPP scheduled for 1045. Datetime: 09/09/2023 10:19 PATIENT CARE Patient Position/Activity: Left Lateral Datetime: 09/09/2023 10:07 Temperature (C): 36.8 Datetime: 09/09/2023 10:00 Stage of : OB Triage Datetime: 08/25/2023 20:15 Frequency (min): none Quality: Mild Pattern: Normal: <= 5 Contractions in 10 Minutes Resting Tone (Palpate): Relaxed ASSESSMENT A Monitor Mode: External US FHR Baseline Rate : 135 Variability: Moderate 6-25 bpm Accelerations: 15X15 Decelerations: None Category: Category I Datetime: 08/25/2023 19:46 Patient Care Comments: , 33.4 week patient here for scheduled NST. Patient denies LOF and vagin al bleeding, positive movement and occasional contractions. EFMs explained and applied x2. Pat ient denies additional needs at this time. Call light within reach. Datetime: 08/18/2023 14:00 Duration (sec): 60-95 Datetime: 08/18/2023 13:00 UTERINE ACTIVITY Monitor Mode: External Monitor Interventions for UA: [place] Adjusted
--- NOTE | 2023-09-09 17:50 | Ultrasound Report ---
PROCEDURE: OB Biophysical Profile INDICATIONS: GESTATIONAL DIABETES OUTSIDE/PRIOR DATING DATA: Last menstrual period (LMP): 01/02/2023. LMP-based estimated date of delivery (SIVAN): 10/09/2023. First dating scan (date and location): 02/28/2023. Estimated date of delivery (SIVAN) from first dating scan: 10/10/2023. The below data below was generated using the working SIVAN of 10/10/2023 TECHNIQUE: Real-time scanning was performed of the fetus, with image documentation and biometric ryan surements. Biophysical profile was also obtained. Endovaginal scanning: None COMPARISON: None. FINDINGS: General: A single living intrauterine gestation is present. Presentation: Vertex Placenta: Placental position is fundal, without previa. Amniotic fluid index: 25.6 cm heart rate: 131 beats per minute. Maternal cervical canal: 3.2 cm long; normal length is 2.5 cm or more. Biophysical profile: Tone: 2 points. Movement: 2 points. Respiration: 2 points. Largest pocket of fluid: 2 points. IMPRESSION: Single live intrauterine . Biophysical profile score 8 out of 8. ELVIA 25.6 cm Reviewed by: Vaughn Grimes MD on 09/09/2023 4:49 PM [place] Approved by: Vaughn Grimes MD on 09/09/2023 4:49 PM [place] Station ID: [id number]
--- NOTE | 2023-09-09 19:59 | PROCEDURE REPORT ---
- HPI Diagnosis/Indication for NST: Gestational Diabetes Current EDU 10/09/23 Gestation 35 Weeks and 5 Days 2 Para 0 gestational diabetes on metformin AMA covid during back in April. Vital Signs Temperature 98.2 F 09/09/23 10:06 Temperature 98.2 F 09/09/23 10:08 Heart Rate 85 09/09/23 10:08 Respiratory Rate 17 09/09/23 10:08 Blood Pressure 105/52 L 09/09/23 10:08 O2 Saturation 97 09/09/23 10:08 If not protocol: Oxygen Flow, liters/minute - NST Procedure NST Procedure Start Date 09/09/23 Start Time 10:00 Stop Time 10:37 Vibroacoustic Stimulation Used Yes Patient States Movement Yes reviewed in real time. baby very active and hard to trace. BPP also today. moderate variability with normal baseline. + acels. no decels. - Results and Plan Findings/Impression: reactive nst Plan: care as scheduled.
== END 2023-09-09 10:37 | disposition home or self-care (01) ==
LOC: DI 09:55 → FBP 09:56 → DI 10:37
PROVIDERS: ATTEND Obstetrics & Gynecology
DX: O24.415 Gestational diabetes mellitus in pregnancy, controlled by oral hypoglycemic drugs (principal); Z3A.35 35 weeks gestation of pregnancy
CPT/HCPCS: 59025

== ENCOUNTER 2023-09-12 08:00 | Outpatient (CLI) | payer BC | END 2023-09-12 23:59 | disposition home or self-care (01) | LOC: LAB.WC 08:00 | PROVIDERS: ATTEND Obstetrics & Gynecology | DX: Z36.85 Encounter for antenatal screening for Streptococcus B (principal) | CPT/HCPCS: 87797 ==

== ENCOUNTER 2023-09-12 09:39 | Outpatient (CLI) | payer BC ==
--- NOTE | 2023-09-12 09:57 | PROCEDURE REPORT ---
- HPI Current EDU 10/09/23 Gestation 36 Weeks and 1 Days 2 Para 0 Vital Signs Temperature 98.2 F 09/12/23 09:51 Heart Rate 87 09/12/23 09:51 Respiratory Rate 16 09/12/23 09:51 Blood Pressure 121/68 09/12/23 09:51 Temperature 98.2 F 09/12/23 09:51 Heart Rate 87 09/12/23 09:51 Respiratory Rate 16 09/12/23 09:51 Blood Pressure 121/68 09/12/23 09:51 O2 Saturation If not protocol: Oxygen Flow, liters/minute - NST Procedure NST Procedure Start Time 10:00 Stop Time 10:37 - Results and Plan Plan: Patient is a 38-year-old -0-1-0 at 36 weeks 1 day gestation here for NST. NST Performed 09/12/2023 NST Read 09/12/2023 FHT: 125 bpm baseline, moderate variability, accelerations present, no decelerations. Reactive NST [place]: Rare Diagnosis 36 weeks gestation Gestational diabetes Continue with scheduled NST.
[2023-09-12 10:01] VITALS: BP 121/68
== END 2023-09-12 10:45 | disposition home or self-care (01) ==
LOC: WFO 09:39 → FBP 09:42 → WFO 10:45
PROVIDERS: ATTEND Nurse Practitioner
DX: O24.419 Gestational diabetes mellitus in pregnancy, unspecified control (principal); Z3A.36 36 weeks gestation of pregnancy; Z36.85 Encounter for antenatal screening for Streptococcus B
CPT/HCPCS: 59025; 87797

== ENCOUNTER 2023-09-14 07:12 | Outpatient (CLI) | payer BC ==
--- NOTE | 2023-09-15 11:48 | Ultrasound Report ---
PROCEDURE: OB Biophysical Profile INDICATIONS: GESTATIONAL DIABETES OUTSIDE/PRIOR DATING DATA: Last menstrual period (LMP): 01/02/2023. LMP-based estimated date of delivery (SIVAN): 10/09/2023. First dating scan (date and location): 02/28/2023. Estimated date of delivery (SIVAN) from first dating scan: 10/10/2023. The below data below was generated using the ultrasound SIVAN of 10/10/2023. TECHNIQUE: Real-time scanning was performed of the fetus, with image documentation and biometric ryan surements. Biophysical profile was also obtained. COMPARISON: OB ultrasound, 08/18/2023, 08/26/2023. FINDINGS: General: A single living intrauterine gestation is present. Presentation: Vertex Placenta: Placental position is posterior, without previa. Amniotic fluid index: 20.8 cm with the largest pocket 6.8 cm deep. heart rate: 144 beats per minute. Maternal cervical canal: Not visualized. biometrics: Not performed Estimated gestational age from initial scan: 10/10/2023. Measurement variability in biometric dating: +/- 10 days from 12-20 weeks gestation, +/- 2 weeks from 20-30 weeks gestation, +/- 3 weeks at 30 weeks gestation or later. Biophysical profile: Tone: 2 points. Movement: 2 points. Respiration: 2 points. Largest pocket of fluid: 2 points. Umbilical artery Doppler: IMPRESSION: 1. Single living IUP redemonstrated. 2. Biophysical profile score 8 out of 8. 3. ELIVA 20.8 cm. surgical Reviewed by: Jared Acosta MD on 09/15/2023 11:47 AM PST Approved by: Jared Acosta MD on 09/15/2023 11:47 AM PST Station ID: [id number]
== END 2023-09-14 07:13 | disposition home or self-care (01) ==
LOC: DI 07:12
PROVIDERS: ATTEND Obstetrics & Gynecology
DX: O24.419 Gestational diabetes mellitus in pregnancy, unspecified control (principal); Z3A.00 Weeks of gestation of pregnancy not specified

== ENCOUNTER 2023-09-15 09:59 | Outpatient (CLI) | payer BC ==
[2023-09-15 10:23] VITALS: BP 123/67
--- NOTE | 2023-09-15 10:53 | PROCEDURE REPORT ---
- HPI Diagnosis/Indication for NST: Gestational Diabetes Vital Signs Temperature 98.2 F 09/15/23 10:10 Heart Rate 87 09/15/23 10:10 Respiratory Rate 16 09/15/23 10:10 Blood Pressure 123/67 09/15/23 10:10 Temperature 98.2 F 09/15/23 10:10 Heart Rate 87 09/15/23 10:10 Respiratory Rate 16 09/15/23 10:10 Blood Pressure 123/67 09/15/23 10:10 O2 Saturation If not protocol: Oxygen Flow, liters/minute - NST Procedure NST Procedure Start Time 09:52 Stop Time 10:22 - Results and Plan Plan: Patient is a 38-year-old -0-1-0 at 36 weeks gestation here for NST. NST Performed 09/15/2023 NST Read 09/15/2023 FHT: 148 bpm baseline, moderate variability, accelerations present, no decelerations. Reactive NST [place]: Occasional Diagnosis 36 weeks gestation Gestational diabetes Continue with scheduled NST.
== END 2023-09-15 10:50 | disposition home or self-care (01) ==
LOC: WFO 09:59 → FBP 10:01 → WFO 10:50
PROVIDERS: ATTEND Obstetrics & Gynecology
DX: O24.419 Gestational diabetes mellitus in pregnancy, unspecified control (principal); Z3A.36 36 weeks gestation of pregnancy
CPT/HCPCS: 59025

== ENCOUNTER 2023-09-19 09:51 | Outpatient (CLI) | payer BC ==
[2023-09-19 10:03] VITALS: BP 130/82
--- NOTE | 2023-09-19 13:57 | PROCEDURE REPORT ---
- HPI Current EDU 10/09/23 Gestation 37 Weeks and 1 Days 2 Para 0 Vital Signs Temperature 98.5 F 09/19/23 10:00 Heart Rate 100 09/19/23 10:00 Blood Pressure 130/82 H 09/19/23 10:00 Temperature 98.5 F 09/19/23 10:00 Heart Rate 100 09/19/23 10:00 Respiratory Rate Blood Pressure 130/82 H 09/19/23 10:00 O2 Saturation If not protocol: Oxygen Flow, liters/minute - NST Procedure NST Procedure Start Date 09/19/23 Start Time 09:58 Stop Time 10:30 Vibroacoustic Stimulation Used No Patient States Movement Yes - Results and Plan Plan: NST Performed 09/19/2023 NST Read 09/19/2023 FHT: 135 bpm baseline, moderate variability, accelerations present, no decelerations. Reactive NST Diagnosis 37 weeks gestation Gestational diabetes Continue with scheduled NST.
== END 2023-09-19 10:35 | disposition home or self-care (01) ==
LOC: WFO 09:51 → FBP 09:53 → WFO 10:35
PROVIDERS: ATTEND Obstetrics & Gynecology
DX: O24.419 Gestational diabetes mellitus in pregnancy, unspecified control (principal); Z3A.37 37 weeks gestation of pregnancy
CPT/HCPCS: 59025

== ENCOUNTER 2023-09-20 09:01 | Outpatient (CLI) | payer BC ==
--- NOTE | 2023-09-20 17:52 | Ultrasound Report ---
PROCEDURE: OB Follow up INDICATIONS: Please perform EFW at 29 weeks, 33 weeks, and 37 weeks OUTSIDE/PRIOR DATING DATA: Last menstrual period (LMP): 01/02/2023. LMP-based estimated date of delivery (SIVAN): 10/09/2023. First dating scan (date and location): 02/28/2023. Estimated date of delivery (SIVAN) from first dating scan: 10/10/2023. The below data below was generated using the working SIVAN of 10/10/2023 TECHNIQUE: Ultrasound of the gravid uterus was performed and recorded. COMPARISON: None. FINDINGS: General: A single live intrauterine gestation is present. Presentation: Vertex Placenta: Placental position is posterior without previa. Amniotic fluid index: 18.8 cm, 79.1 percentile for gestational age. heart rate: 147 beats per minute. Maternal cervical canal: 3.79 cm long; normal length is 2.5 cm or more. biometrics: Biparietal diameter: 9.6 cm, 39 week 2 day, 97.9 percentile Head circumference: 34.5 cm, 40 week 0 day, 86.9 percentile Abdominal circumference: 37.5 cm, 41 week 4 day, greater than 99 percentile Femur length: 7.3 cm, 37 week 3 day, 56.8 percentile Estimated gestational age from initial scan: 37 week 1 day Composite gestational age from present scan: 39 week 4 day Estimated weight and percentile: 4,039 g, greater than 99th percentile Measurement variability in biometric dating: +/- 10 days from 12-20 weeks gestation, +/- 2 weeks from 20-30 weeks gestation, +/- 3 weeks at 30 weeks gestation or later. Biophysical profile score 8 out of 8. Other: Not applicable. IMPRESSION: Single live intrauterine consistent with 39 week 4 day gestation by current ultrasound Biophysical profile score 8 out of 8 EFW 4039.2 g, greater than 99th percentile Reviewed by: Vaughn Grimes MD on 09/20/2023 4:51 PM [facility] Approved by: Vaughn Grimes MD on 09/20/2023 4:51 PM [place] Station ID: [id number]
--- NOTE | 2023-09-20 19:03 | Ultrasound Report ---
PROCEDURE: OB Biophysical Profile INDICATIONS: GESTATIONAL DIABETES OUTSIDE/PRIOR DATING DATA: Last menstrual period (LMP): 01/02/2023. LMP-based estimated date of delivery (SIVAN): 10/09/2023. First dating scan (date and location): 02/28/2023. Estimated date of delivery (SIVAN) from first dating scan: 10/10/2023. The below data below was generated using the ultrasound SIVAN of 10/10/2023 TECHNIQUE: Real-time scanning was performed of the fetus, with image documentation and biometric ryan surements. Biophysical profile was also obtained. COMPARISON: OB ultrasound 09/14/2023 FINDINGS: General: A single living intrauterine gestation is present. Presentation: Vertex Placenta: Placental position is posterior, without previa. Amniotic fluid index: 18.8 cm, within normal limits for gestational age. Largest pocket 7.2 cm heart rate: 147 beats per minute. Maternal cervical canal: 3.8 cm long; normal length is 2.5 cm or more. biometrics: Biparietal diameter: 9.6 cm 39 weeks 2 days 28th percentile Head circumference: 34.5 cm 40 weeks 0 days before meals 7th percentile Abdominal circumference: There is some 0.5 cm 1 weeks 4 days greater than 99th percentile Femur length: 7.3 cm 37 weeks 3 days 57th percentile Estimated gestational age from initial scan: 37 weeks 1 day Composite gestational age from present scan: 39 weeks 4 days Estimated weight and percentile: 4039 g greater than 99th percentile Measurement variability in biometric dating: +/- 10 days from 12-20 weeks gestation, +/- 2 weeks from 20-30 weeks gestation, +/- 3 weeks at 30 weeks gestation or later. Biophysical profile: Tone: 2 points. Movement: 2 points. Respiration: 2 points. Largest pocket of fluid: 2 points. IMPRESSION: Single live intrauterine with BPP measuring 8 out of 8. weight is greater than the 99th percentile. Greater than 90th percentile is present and biparietal diameter as well as abdominal circumference. Reviewed by: Kelly Vaca MD on 09/20/2023 7:01 PM PST Approved by: Kelly Vaca MD on 09/20/2023 7:01 PM PST Station ID: [id number]
== END 2023-09-20 09:02 | disposition home or self-care (01) ==
LOC: DI 09:01
PROVIDERS: ATTEND Obstetrics & Gynecology
DX: O24.419 Gestational diabetes mellitus in pregnancy, unspecified control (principal); Z3A.39 39 weeks gestation of pregnancy

== ENCOUNTER 2023-09-22 10:00 | Outpatient (CLI) | payer BC ==
[2023-09-22 10:26] VITALS: BP 118/73; O2SAT 100
--- NOTE | 2023-09-22 17:13 | PROCEDURE REPORT ---
- HPI Diagnosis/Indication for NST: Gestational Diabetes Current EDU 10/09/23 Gestation 37 Weeks and 4 Days 2 Para 0 Vital Signs Temperature 98.1 F 09/22/23 10:18 Heart Rate 83 09/22/23 10:18 Respiratory Rate 17 09/22/23 10:18 Blood Pressure 118/73 09/22/23 10:18 O2 Saturation 100 09/22/23 10:18 Temperature 98.1 F 09/22/23 10:18 Heart Rate 83 09/22/23 10:18 Respiratory Rate 17 09/22/23 10:18 Blood Pressure 118/73 09/22/23 10:18 O2 Saturation 100 09/22/23 10:18 If not protocol: Oxygen Flow, liters/minute - NST Procedure NST Procedure Start Date 09/22/23 Start Time 10:50 Stop Time 11:15 Vibroacoustic Stimulation Used No Patient States Movement Yes - Results and Plan Plan: Patient is a 38-year-old -0-1-0 at 37 weeks 4 days gestation here for NST. NST Performed 09/22/2023 NST Read 09/22/2023 FHT: 135 bpm baseline, moderate variability, accelerations present, no decelerations. Reactive NST [place]: Quiescent Diagnosis 37 weeks gestation Gestational diabetes Continue with scheduled NST.
== END 2023-09-22 11:20 | disposition home or self-care (01) ==
LOC: WFO 10:00 → FBP 10:02 → WFO 11:20
PROVIDERS: ATTEND Obstetrics & Gynecology
DX: O24.419 Gestational diabetes mellitus in pregnancy, unspecified control (principal); Z3A.37 37 weeks gestation of pregnancy
CPT/HCPCS: 59025

== ENCOUNTER 2023-09-26 09:44 | Outpatient (CLI) | payer BC ==
[2023-09-26 16:11] LABS: BILIRUBIN,URINE NEGATIVE (NEGATIVE); GLUCOSE, URINE (UA) NEGATIVE (NEGATIVE); KETONES,URINE (UA) NEGATIVE (NEGATIVE); LEUKOCYTE ESTERASE, URINE NEGATIVE (NEGATIVE); NITRITE,URINE NEGATIVE (NEGATIVE); OCCULT BLOOD,URINE NEGATIVE (NEGATIVE); PH,URINE 6.5 PH (5.0-7.5); PROTEIN,URINE NEGATIVE (NEGATIVE); UROBILINOGEN,URINE 0.2 (NORMAL) E.U./dL (NORMAL)
[2023-09-26 16:12] LABS: CREATININE,URINE 67.4 mg/dL; PROTEIN/CREATININE RATIO,URINE 0.1 (<=0.2)
[2023-09-26 16:22] LABS: CLARITY,URINE CLEAR (CLEAR)
[2023-09-26 16:40] LABS: WBC,URINE 0-3 /HPF (0-5)
[2023-09-26 16:41] LABS: BACTERIA,URINE Few /HPF (None Seen); RBC,URINE 0-5 /HPF (0-5); SQUAMOUS EPITHELIAL CELL,UR MOD Squamous (<= Few)
== END 2023-09-26 23:59 | disposition home or self-care (01) ==
LOC: LAB 09:44
PROVIDERS: ATTEND Nurse Practitioner
DX: O09.93 Supervision of high risk pregnancy, unspecified, third trimester (principal); O99.891 Other specified diseases and conditions complicating pregnancy; R03.0 Elevated blood-pressure reading, without diagnosis of hypertension
CPT/HCPCS: 81001; 82570; 84156; 87086

== ENCOUNTER 2023-09-29 09:40 | Outpatient (CLI) | payer BC ==
[2023-09-29 09:58] VITALS: BP 119/82; O2SAT 98
--- NOTE | 2023-09-29 13:51 | PROCEDURE REPORT ---
- HPI Diagnosis/Indication for NST: Gestational Diabetes Current EDU 10/09/23 Gestation 38 Weeks and 4 Days 2 Para 0 Vital Signs Temperature 97.9 F 09/29/23 09:45 Temperature 98.1 F 09/29/23 09:54 Heart Rate 90 09/29/23 09:54 Respiratory Rate 17 09/29/23 09:54 Blood Pressure 119/82 H 09/29/23 09:54 O2 Saturation 98 09/29/23 09:54 If not protocol: Oxygen Flow, liters/minute - NST Procedure NST Procedure Start Date 09/29/23 Start Time 09:45 Stop Time 10:15 Patient States Movement Yes - Results and Plan Plan: Patient is a 38-year-old -0-1-0 at 38 weeks 4 days gestation here for NST. NST Performed 09/29/2023 NST Read 09/29/2023 FHT: 140 bpm baseline, moderate variability, accelerations present, no decelerations. Reactive NST [place]: Quiescent Diagnosis 38 weeks gestation Gestational diabetes Continue with scheduled OB care
== END 2023-09-29 10:15 | disposition home or self-care (01) ==
LOC: WFO 09:40 → FBP 09:41 → WFO 10:15
PROVIDERS: ATTEND Obstetrics & Gynecology
DX: O24.419 Gestational diabetes mellitus in pregnancy, unspecified control (principal); Z3A.38 38 weeks gestation of pregnancy
CPT/HCPCS: 59025

== ENCOUNTER 2023-10-03 09:09 | Inpatient (IN) | payer BC ==
[2023-10-03] MEDS ORDERED: NIFEdipine 10 MG CAPSULE PO PRN (10:50)
[2023-10-03] MEDS ORDERED: SODIUM CHLORIDE FLUSH 0.9% 10 ML SYRINGE IVP PRN (10:50)
[2023-10-03] MEDS ORDERED: TERBUTALINE 1 MG/ML VIAL SUBQ PRN (10:50)
[2023-10-03] MEDS ORDERED: CARBOPROST TROMETHAMINE 250 MCG/ML VIAL IM PRN (10:50)
[2023-10-03] MEDS ORDERED: lidocaine 1% 20 ML MDV ID PRN (10:50)
[2023-10-03] MEDS ORDERED: ACETAMINOPHEN 500 MG TABLET PO PRN (10:50)
[2023-10-03] MEDS ORDERED: TRANEXAMIC ACID IN NACL 1,000 MG/100 ML BAG IV PRN (10:50)
[2023-10-03] MEDS ORDERED: LABETALOL 20 MG/4 ML SYRINGE IVP PRN ×3 (10:50)
[2023-10-03] MEDS ORDERED: miSOPROStoL 200 MCG TABLET PR PRN (10:50)
[2023-10-03] MEDS ORDERED: OXYTOCIN 10 UNIT/ML VIAL IM PRN (10:50)
[2023-10-03] MEDS ORDERED: OXYTOCIN/SODIUM CHLORIDE 500 ML IV PRN (10:50)
[2023-10-03] MEDS ORDERED: miSOPROStoL 200 MCG TABLET BC PRN (10:50)
[2023-10-03] MEDS ORDERED: hydrALAZINE INJ 20 MG/ML VIAL IVP PRN ×2 (10:50)
[2023-10-03] MEDS ORDERED: METHYLERGONOVINE 0.2 MG/ML VIAL IM PRN (10:50)
[2023-10-03] MEDS: miSOPROStoL 100 MCG TABLET VG SCH (11:48)
[2023-10-03] MEDS: SODIUM CHLORIDE FLUSH 0.9% 10 ML SYRINGE IVP SCH (11:48)
[2023-10-03 12:11] LABS: BASOPHILS # (AUTO) 0.1 10^3/uL (0.0-0.1); BASOPHILS % (AUTO) 0.5 %; EOSINOPHILS % (AUTO) 0.4 %; HCT - HEMATOCRIT 37.8 % (37.0-47.0); HGB - HEMOGLOBIN 12.1 g/dL (12.0-16.0); LYMPHOCYTES # (AUTO) 1.8 10^3/uL (1.5-3.5); LYMPHOCYTES % (AUTO) 19.4 %; MEAN CORPUSCULAR HEMOGLOBIN 29.2 pg (27.0-31.0); MEAN CORPUSCULAR VOLUME 91.3 fL (81.0-99.0); MEAN PLATELET VOLUME 11.7 fL (7.9-10.8); MONOCYTES # (AUTO) 0.7 10^3/uL (0.0-1.0); MONOCYTES % (AUTO) 7.2 %; NEUTROPHILS # (AUTO) 6.7 10^3/uL (1.5-6.6); NEUTROPHILS % (AUTO) 72.2 %; PLT - PLATELET COUNT 227 10^3/uL (130-450); RED BLOOD COUNT 4.14 10^6/uL (4.20-5.40); RED CELL DISTRIBUTION WIDTH 14.2 % (12.0-15.0); WHITE BLOOD COUNT 9.3 x10^3/uL (4.8-10.8)
[2023-10-03 12:21] LABS: ALBUMIN 3.4 g/dL (3.2-5.5); ALBUMIN/GLOBULIN RATIO 1.1 (1.0-2.2); BILIRUBIN,TOTAL 0.4 mg/dL (0.2-1.0); CALCIUM 10.2 mg/dL (8.5-10.3); CREATININE 0.6 mg/dL (0.6-1.3); POTASSIUM 4.1 mmol/L (3.5-4.5); TOTAL PROTEIN 6.5 g/dL (6.4-8.9)
[2023-10-03 13:03] LABS: ESTIMATED AVERAGE GLUCOSE 111 mg/dL (70-100); HEMOGLOBIN A1c% 5.5 % (4.27-6.07)
--- NOTE | 2023-10-03 22:42 | HISTORY & PHYSICAL EXAMINATION ---
Admit History - Visit Reason Visit Reason: Other (induction for large baby) - : 1 Care: positive: [facility] Complications This : positive: Gestational diabetes, induced HTN, Other (very large baby) Smoking Status: Never smoker - Mother's Labs GBS: positive: Group B Strep Positive Rubella Status: positive: Immune - Other Maternal History Other Maternal History: last uls done 09/21/23: EFW 99th percentile, 4039 g, AC 99th percentile. HC 7th percentile Allergies: Allergies Reviewed: Done * PERTUSSIS (Critical) Medications: Meds Reviewed: Done FreeStyle Giovany 14 Day Sensor kit (flash glucose sensor) Use 1 kit as directed as directed metformin 500 mg tablet extended release 24 hr (metformin) Take 1 tablet by mouth twice a day True Metrix Air Glucose Meter kit (blood-glucose meter) glucose monitor and supplies for 4x/day testing. fasting and 2 hr after meals. for duration of . SIVAN 10/09/2023 Lancets, Super Thin (lancets) Use 1 lancet as directed four times a day True Metrix Glucose Test Strip strip (blood sugar diagnostic) USE DIRECTED TO TEST BLOOD SUGAR FOUR TIMES A DAY * Tums (calcium carbonate) * Tylenol (acetaminophen) * pepcid aspirin 81 mg tablet,chewable (aspirin) Take 1 tablet by mouth once a day 28-800 mg-mcg tablet ([id number] fumarate-fa) Zyrtec 10 mg capsule (cetirizine) magnesium citrate 100 mg tablet (magnesium citrate) Problems: Elevated blood pressure reading without diagnosis of hypertension (ICD-796.2) (SES65-Z67.0) Group B strep in , third trimester (ICD-647.83) (DHE60-S00.820) Gestational diabetes mellitus, class A2 (ICD-648.80) (ZUC97-K29.414) Supervision high risk , third trimester (ICD-V23.9) (FLK67-U23.93) Uterine size-date discrepancy, third trimester (ICD-649.63) (KDG82-U22.843) Antepartum elderly multigravida, unspecified trimester (ICD-659.63) (ICD10- O09.529) COVID-19 coronavirus infection (ICD-079.89) (IBR41-E15.1) Hx of ovarian cyst (ICD-620.2) (VVJ48-P19.42) Past Medical History: acid reflux covid during 04/2023 gestational hypertension gestational diabetes Past Surgical History: Tonsillectomy liposuction Vital Signs: Patient Profile: 38 Years Old Female Height: 63 inches Weight: 263 pounds BMI: 46.76 BP sittin / 74 Cuff size: large Pt. in pain? yes Intensity: 4 Vitals Entered By: Daxa Davison (September 26, 2023 9:40 AM) Meds Reviewed: Done Allergies Reviewed: Done Flowsheet View for Follow-up Visit Estimated weeks of gestation: 38 08/07 Weight: 263 Blood pressure: 128 / 74 Fundal height: not done FHR: 140 Vaginal bleeding: no Vaginal discharge: no activity: yes Labor symptoms: few ctx position: vertex Cx Dilation: 0 Cx Station: high Smoking: n/a Next visit: 1 wk Comment: Excited for next weeks induction of labor, butDoesn't want to labor for days on end. Sugars 50's at bedtime with no elevations above goal. Glucose logs not completed but Dev is a good historian. Fabricio coming back on the . SVE today FT external os, closed internal os/thick, high, posterior. Discussed cervical ripening. BP above normal but not elevated by definition. Urine PCR collected and discussed. Ongoing pelvic and lower back pain. Some increase to pedal edema. Worried urine may be cloudy. Will add UA (culture if indicated). Stopped Metformin. Excited for baby AND to NOT be anymore. ~KJB LMP: 01/02/23 SIVAN by LMP: 10/09/23 US: 02/22/2023, 7+3 weeks CW LMP Final SIVAN: 10/09/2023 Problems: 1. AMA -- cfDNA wnl, AFP wnl A2GDM -Stopped metformin for lows at 36 weeks. -NSTs -Concern for macrosomia. On track for 4500gm. Discussed primary CS with MFM. - EFW 09/26 BMI>30 [ ] care with wellness Covid @ 14w -- on LDASA ED RN. GERD: -- on famotidine -- managing with diet also. ALLERGIC TO TDAP VACCINE h/o TUMMY TUCK [ ] umbilicus is not reliable anatomical landmark Elevated ELVIA: 25cm on 09/09. Will repeat this week. Pre- Weight:239.4 BMI: 42.56 Blood type: O+ Antibody: negative CBC: PLT 310 HCT 41.0 HGB 13.2 RUB: immune VZV: NOT immune HBsAg: negative HepC: N-R RPR/AB-EIA: N-R HIV: N-R PAP: 2021, normal GC/CT: neg HSV: denies self/partner Genetic testing: cfDNA / AFP wnl. Covid: vaccinated and boostered, then infected Flu: at work FAS: ordered 04/18 Placenta: fundal, no previa Cord: 3VC ELVIA: WNL EFW: 354g 85%ile 50gm OGCT: 187 3HR GTT: TDAP: Allergy. Discussed extra caution. Breast Pump: already has one Antibody screen: 3rd trimester HGB 11.5 HCT 36.0 PLT 282 GBS: 09/12/2023 POSITIVE Delivery plan: Consider IOL 10/05 0800 - HPI Current EDU 10/09/23 Gestation 39 Weeks and 1 Days 2 Vital Signs Temperature 98.2 F 10/03/23 09:29 Heart Rate 81 10/03/23 09:29 Respiratory Rate 16 10/03/23 09:29 Blood Pressure 151/84 H 10/03/23 09:29 Temperature 98.2 F 10/03/23 09:29 Heart Rate 81 10/03/23 09:29 Respiratory Rate 16 10/03/23 09:29 Blood Pressure 151/84 H 10/03/23 09:29 O2 Saturation If not protocol: Oxygen Flow, liters/minute - NST Procedure NST Procedure Start Time 09:45 Stop Time 10:15 Meds/Allgy - Home Medications Home Medications: Ambulatory Orders Medication Instructions Recorded Confirmed Metformin HCl [Metformin ER 500 mg PO BIDWM 10/03/23 10/03/23 Gastric] - Allergies Allergies/Adverse Reactions: Allergies Allergy/AdvReac Type Severity Reaction Status Date / Time Pertussis Vaccines Allergy Respiratory Verified 08/18/23 16:41 Review of Systems - Constitutional Constitutional: reports: Fatigue - Eyes Eyes: denies: Spots in vision - Other Findings Other Findings: baby moving well. + edema. Physical - Abdominal Exam Vital Signs: Temp Pulse Resp BP Pulse Ox O2 Flow Rate 98.2 F 81 16 151/84 H 10/03/23 09:29 10/03/23 09:29 10/03/23 09:29 10/03/23 09:29 Contraction Intensity: positive: Irritability Uterine Resting Tone: positive: Soft - Monitoring Strip Review: positive: Category I - Presentation Presentation: positive: Vertex - Vaginal Exam Membranes: positive: Membranes intact Dilation (in cm): 0 Station: positive: -3 - Speculum Exam Speculum Exam Performed: positive: No Plan for Labor - Plan For Labor I expect patient to be DC'd or transferred within 96 hours.: Yes Plan for Labor: presenting for labor induction. very large baby estimated to be 4500 + gram. offered primary c section but patient declines. would like to try for vaginal delivery. discussed that she can change her mind at any time and let us know. I encouraged her to think about this every time before she eats. consents signed. will start induction with miso. GDM but off metfromin now since 36 weeks. and sugars have been normal or even low. does not want sugars monitored in labor. GBS + will start Ampicillin in labor.
--- NOTE | 2023-10-03 22:56 | PROVIDER PROGRESS NOTE ---
Subjective - Prog Note Date Prog Note Date: 10/03/23 Prog Note Time: 17:45 - Subjective Subjective: checked in with patient. doing well. baby category 1. not really changed per RN and not veyr uncomfortable. continue miso per protocol Objective - Lab Results Fish Bones: 10/03/23 11:35 10/03/23 11:35 Other Labs: Lab Results x24hrs 10/03/23 10/03/23 10/03/23 Range/Units 11:35 11:35 11:35 WBC 9.3 (4.8-10.8) x10^3/uL RBC 4.14 L (4.20-5.40) 10^6/uL Hgb 12.1 (12.0-16.0) g/dL Hct 37.8 (37.0-47.0) % MCV 91.3 (81.0-99.0) fL MCH 29.2 (27.0-31.0) pg MCHC 32.0 (32.0-36.0) g/dL RDW 14.2 (12.0-15.0) % Plt Count 227 (130-450) 10^3/uL MPV 11.7 H (7.9-10.8) fL Neut # (Auto) 6.7 H (1.5-6.6) 10^3/uL Lymph # (Auto) 1.8 (1.5-3.5) 10^3/uL [place] # (Auto) 0.7 (0.0-1.0) 10^3/uL Eos # (Auto) 0.0 (0.0-0.7) 10^3/uL Baso # (Auto) 0.1 (0.0-0.1) 10^3/uL Absolute Nucleated RBC 0.00 x10^3/uL Nucleated RBC % 0.0 /100WBC Sodium 134 L (135-145) mmol/L Potassium 4.1 (3.5-4.5) mmol/L Chloride 103 (101-111) mmol/L Carbon Dioxide 20 L (21-32) mmol/L Anion Gap 11.0 (6-13) BUN 10 (6-20) mg/dL Creatinine 0.6 (0.6-1.3) mg/dL Estimated GFR (MDRD) 113 (>89) Glucose 127 H (74-104) mg/dL Estimat Average Glucose 111 H (70-100) mg/dL Hemoglobin A1c % 5.5 (4.27-6.07) % Calcium 10.2 (8.5-10.3) mg/dL Total Bilirubin 0.4 (0.2-1.0) mg/dL AST 14 (10-42) IU/L ALT 7 L (10-60) IU/L Alkaline Phosphatase 105 (42-121) IU/L Total Protein 6.5 (6.4-8.9) g/dL Albumin 3.4 (3.2-5.5) g/dL Globulin 3.1 (2.1-4.2) g/dL Albumin/Globulin Ratio 1.1 (1.0-2.2) Blood Type Antibody Screen 10/03/23 Range/Units 11:35 WBC (4.8-10.8) x10^3/uL RBC (4.20-5.40) 10^6/uL Hgb (12.0-16.0) g/dL Hct (37.0-47.0) % MCV (81.0-99.0) fL MCH (27.0-31.0) pg MCHC (32.0-36.0) g/dL RDW (12.0-15.0) % Plt Count (130-450) 10^3/uL MPV (7.9-10.8) fL Neut # (Auto) (1.5-6.6) 10^3/uL Lymph # (Auto) (1.5-3.5) 10^3/uL [place]calfe # (Auto) (0.0-1.0) 10^3/uL Eos # (Auto) (0.0-0.7) 10^3/uL Baso # (Auto) (0.0-0.1) 10^3/uL Absolute Nucleated RBC x10^3/uL Nucleated RBC % /100WBC Sodium (135-145) mmol/L Potassium (3.5-4.5) mmol/L Chloride (101-111) mmol/L Carbon Dioxide (21-32) mmol/L Anion Gap (6-13) BUN (6-20) mg/dL Creatinine (0.6-1.3) mg/dL Estimated GFR (MDRD) (>89) Glucose (74-104) mg/dL Estimat Average Glucose (70-100) mg/dL Hemoglobin A1c % (4.27-6.07) % Calcium (8.5-10.3) mg/dL Total Bilirubin (0.2-1.0) mg/dL AST (10-42) IU/L ALT (10-60) IU/L Alkaline Phosphatase (42-121) IU/L Total Protein (6.4-8.9) g/dL Albumin (3.2-5.5) g/dL Globulin (2.1-4.2) g/dL Albumin/Globulin Ratio (1.0-2.2) Blood Type O POSITIVE Antibody Screen NEGATIVE
[2023-10-03] MEDS ORDERED: AMPICILLIN 2 GM in SODIUM CHLORIDE 0.9% MINIBAG 100 ML IV ONE (22:58)
--- NOTE | 2023-10-03 23:01 | PROVIDER PROGRESS NOTE ---
Subjective - Prog Note Date Prog Note Date: 10/03/23 Prog Note Time: 22:56 - Subjective Subjective: per RN getting more uncomfortable. miso 4 is at midnight. will need Amp if laboring baby category 1. mom vss. Objective - Lab Results Fish Bones: 10/03/23 11:35 10/03/23 11:35 Other Labs: Lab Results x24hrs 10/03/23 10/03/23 10/03/23 Range/Units 11:35 11:35 11:35 WBC 9.3 (4.8-10.8) x10^3/uL RBC 4.14 L (4.20-5.40) 10^6/uL Hgb 12.1 (12.0-16.0) g/dL Hct 37.8 (37.0-47.0) % MCV 91.3 (81.0-99.0) fL MCH 29.2 (27.0-31.0) pg MCHC 32.0 (32.0-36.0) g/dL RDW 14.2 (12.0-15.0) % Plt Count 227 (130-450) 10^3/uL MPV 11.7 H (7.9-10.8) fL Neut # (Auto) 6.7 H (1.5-6.6) 10^3/uL Lymph # (Auto) 1.8 (1.5-3.5) 10^3/uL Butts # (Auto) 0.7 (0.0-1.0) 10^3/uL Eos # (Auto) 0.0 (0.0-0.7) 10^3/uL Baso # (Auto) 0.1 (0.0-0.1) 10^3/uL Absolute Nucleated RBC 0.00 x10^3/uL Nucleated RBC % 0.0 /100WBC Sodium 134 L (135-145) mmol/L Potassium 4.1 (3.5-4.5) mmol/L Chloride 103 (101-111) mmol/L Carbon Dioxide 20 L (21-32) mmol/L Anion Gap 11.0 (6-13) BUN 10 (6-20) mg/dL Creatinine 0.6 (0.6-1.3) mg/dL Estimated GFR (MDRD) 113 (>89) Glucose 127 H (74-104) mg/dL Estimat Average Glucose 111 H (70-100) mg/dL Hemoglobin A1c % 5.5 (4.27-6.07) % Calcium 10.2 (8.5-10.3) mg/dL Total Bilirubin 0.4 (0.2-1.0) mg/dL AST 14 (10-42) IU/L ALT 7 L (10-60) IU/L Alkaline Phosphatase 105 (42-121) IU/L Total Protein 6.5 (6.4-8.9) g/dL Albumin 3.4 (3.2-5.5) g/dL Globulin 3.1 (2.1-4.2) g/dL Albumin/Globulin Ratio 1.1 (1.0-2.2) Blood Type Antibody Screen 10/03/23 Range/Units 11:35 WBC (4.8-10.8) x10^3/uL RBC (4.20-5.40) 10^6/uL Hgb (12.0-16.0) g/dL Hct (37.0-47.0) % MCV (81.0-99.0) fL MCH (27.0-31.0) pg MCHC (32.0-36.0) g/dL RDW (12.0-15.0) % Plt Count (130-450) 10^3/uL MPV (7.9-10.8) fL Neut # (Auto) (1.5-6.6) 10^3/uL Lymph # (Auto) (1.5-3.5) 10^3/uL Butts # (Auto) (0.0-1.0) 10^3/uL Eos # (Auto) (0.0-0.7) 10^3/uL Baso # (Auto) (0.0-0.1) 10^3/uL Absolute Nucleated RBC x10^3/uL Nucleated RBC % /100WBC Sodium (135-145) mmol/L Potassium (3.5-4.5) mmol/L Chloride (101-111) mmol/L Carbon Dioxide (21-32) mmol/L Anion Gap (6-13) BUN (6-20) mg/dL Creatinine (0.6-1.3) mg/dL Estimated GFR (MDRD) (>89) Glucose (74-104) mg/dL Estimat Average Glucose (70-100) mg/dL Hemoglobin A1c % (4.27-6.07) % Calcium (8.5-10.3) mg/dL Total Bilirubin (0.2-1.0) mg/dL AST (10-42) IU/L ALT (10-60) IU/L Alkaline Phosphatase (42-121) IU/L Total Protein (6.4-8.9) g/dL Albumin (3.2-5.5) g/dL Globulin (2.1-4.2) g/dL Albumin/Globulin Ratio (1.0-2.2) Blood Type O POSITIVE Antibody Screen NEGATIVE
[2023-10-04] MEDS: fentaNYL 100 MCG/2 ML VIAL IVP PRN (00:31)
--- NOTE | 2023-10-04 01:06 | PROVIDER PROGRESS NOTE ---
Labor Progress Note - Uterine Monitoring Uterine Monitoring Mode: positive: External toco Contraction Frequency (min/apart): q2, now q3-4 Contraction Intensity: positive: Moderate Uterine Resting Tone: positive: Soft - Monitoring Monitor Mode: positive: External ultrasound Heart Rate Variability: positive: Moderate (6-25 bmp) Accelerations: positive: Present, 15x15 Decelerations: positive: None Strip Review: positive: Category I - Vaginal Exam Dilation (in cm): 2.5 Effacement (%): 80 Station: -3 - Labor Progress Note Labor Progress Note/Additional Text: feeling very uncomfortable after last miso. thompson alot. agrees to catheter. fentanyl 100 mcg given and that helped. catheter is placed into cervix and uterine balloon filled with 60 cc. vaginal with 40. tolerated well. will leave in for 12 hours or until comes out. will start ampicillin now as she is very painful. not ready for epidural yet.
[2023-10-04] MEDS ORDERED: AMPICILLIN 1 GM in SODIUM CHLORIDE 0.9% MINIBAG 100 ML IV SCH (03:00)
[2023-10-04] MEDS: LACTATED RINGERS 1,000 ML IV PRN (04:30)
[2023-10-04] MEDS: AMPICILLIN 2 GM in SODIUM CHLORIDE 0.9% MINIBAG 100 ML IV ONE ×2 (04:30→04:45)
[2023-10-04] MEDS ORDERED: ROPIVACAINE 0.2% 200 MG/100 ML BAG EP ONE (05:10)
[2023-10-04] MEDS ORDERED: LIDOCAINE 1%-EPI 1:100000 20 ML MDV ONE (05:27)
--- NOTE | 2023-10-04 06:07 | ANESTHESIA ---
Pre-Anesthesia VS, & Labs - Diagnosis labor pain - Procedure labor epidural Vital Signs: Temp Pulse Resp BP Pulse Ox O2 Flow Rate 36.8 C 81 16 151/84 H 10/03/23 09:29 10/03/23 09:29 10/03/23 09:29 10/03/23 09:29 Height: 5 ft 3 in Weight (kg): 119.295 kg Body Mass Index: 46.5 BMI Classification: Morbidly Obese - NPO Other - Is Patient ?: Yes - Lab Results Current Lab Results: Laboratory Tests 10/03/23 11:35: Estimat Average Glucose 111 H, Hemoglobin A1c % 5.5 10/03/23 11:35: Sodium 134 L, Potassium 4.1, Chloride 103, Carbon Dioxide 20 L, Anion Gap 11.0, BUN 10, Creatinine 0.6, Estimated GFR (MDRD) 113, Glucose 127 H, Calcium 10.2, Total Bilirubin 0.4, AST 14, ALT 7 L, Alkaline Phosphatase 105, Total Protein 6.5, Albumin 3.4, Globulin 3.1, Albumin/Globulin Ratio 1.1 10/03/23 11:35: WBC 9.3, RBC 4.14 L, Hgb 12.1, Hct 37.8, MCV 91.3, MCH 29.2, MCHC 32.0, RDW 14.2, Plt Count 227, MPV 11.7 H, Neut # (Auto) 6.7 H, Lymph # (Auto) 1.8, [place] # (Auto) 0.7, Eos # (Auto) 0.0, Baso # (Auto) 0.1, Absolute Nucleated RBC 0.00, Nucleated RBC % 0.0 10/03/23 11:35: Blood Type O POSITIVE, Antibody Screen NEGATIVE Fish Bones: 10/03/23 11:35 10/03/23 11:35 Home Medications and Allergies Home Medications: Ambulatory Orders Metformin HCl [Metformin ER Gastric] 500 mg PO BIDWM 10/03/23 Active Medications Acetaminophen (Acetaminophen 500 Mg Tablet) 1,000 mg PO Q8H PRN PRN Reason: Mild Pain or Fever>38C(100.4F) Carboprost Tromethamine (Carboprost Tromethamine 250 Mcg/Ml Vial) 250 mcg IM .ONCE PRN PRN Reason: Hemorrhage Hydralazine HCl (Hydralazine Inj 20 Mg/Ml Vial) 5 - 10 mg IVP Q20M PRN; Protocol PRN Reason: SBP> or= 160 OR DBP> or= 110 Hydralazine HCl (Hydralazine Inj 20 Mg/Ml Vial) 10 mg IVP .ONCE PRN; Protocol PRN Reason: SBP> or= 160 OR DBP> or= 110 Lactated Ringer's (Lr) 500 mls @ 999 mls/hr IV PRN PRN PRN Reason: NEEDED PER PROVIDER ORDERS Last Admin: 10/04/23 04:30 Dose: 125 mls/hr Oxytocin/Sodium Chloride (Pitocin/Sodium Chloride) 500 mls @ 999 mls/hr IV PRN PRN; Protocol PRN Reason: POST- HEMORR PREVENTION Tranexamic Acid (Tranexamic 1,000 Mg/100ml-Nacl) 1,000 mg in 100 mls @ 600 mls/hr IV Q30M PRN PRN Reason: EBL >1200mL and within 3hr Ampicillin Sodium 1 gm/ Sodium (Chloride) 100 mls @ 200 mls/hr IV Q4H ISMAEL Labetalol HCl (Labetalol 20 Mg/4 Ml Syringe) 20 - 80 mg IVP Q10M PRN; Protocol PRN Reason: SBP> or= 160 OR DBP> or= 110 Labetalol HCl (Labetalol 20 Mg/4 Ml Syringe) 20 mg IVP .ONCE PRN; Protocol PRN Reason: SBP> or= 160 OR DBP> or= 110 Labetalol HCl (Labetalol 20 Mg/4 Ml Syringe) 20 - 40 mg IVP Q10M PRN; Protocol PRN Reason: SBP> or= 160 OR DBP> or= 110 Lidocaine HCl (Lidocaine 1% 20 Ml Mdv) 20 ml ID .ONCE PRN PRN Reason: PERINEAL REPAIR Stop: 10/06/23 10:50 Methylergonovine Maleate (Methylergonovine 0.2 Mg/Ml Vial) 0.2 mg IM .ONCE PRN PRN Reason: Hemorrhage Misoprostol (Misoprostol 200 Mcg Tablet) 600 mcg BC .ONCE PRN PRN Reason: Hemorrhage Misoprostol (Misoprostol 200 Mcg Tablet) 800 mcg MN .ONCE PRN PRN Reason: Hemorrhage Misoprostol (Misoprostol 100 Mcg Tablet) 25 mcg VG Q4H [facility] Last Admin: 10/03/23 19:50 Dose: 25 mcg Nifedipine (Nifedipine 10 Mg Capsule) 10 - 20 mg PO Q20M PRN; Protocol PRN Reason: SBP> or= 160 OR DBP> or= 110 Oxytocin (Oxytocin 10 Unit/Ml Vial) 10 unit IM .ONCE PRN PRN Reason: Step One if no IV access. Sodium Chloride (Sodium Chloride Flush 0.9% 10 Ml Syringe) 10 ml IVP PRN PRN PRN Reason: NEEDED PER PROVIDER ORDERS Sodium Chloride (Sodium Chloride Flush 0.9% 10 Ml Syringe) 10 ml IVP Q8H ISMEAL Last Admin: 10/03/23 11:48 Dose: 10 ml Terbutaline Sulfate (Terbutaline 1 Mg/Ml Vial) 0.25 mg SUBQ .ONCE PRN PRN Reason: Tachystole Metformin HCl [Metformin ER Gastric] 500 mg PO BIDWM 10/03/23 Allergies/Adverse Reactions: Allergies Allergy/AdvReac Type Severity Reaction Status Date / Time Pertussis Vaccines Allergy Respiratory Verified 08/18/23 16:41 Anes History & Medical History - Anesthetic History Anesthesia Complications: reports: No previous complications Family history of Anesthesia Complications: Denies Family history of Malignant Hyperthermia: Denies - Medical History Cardiovascular: reports: Hypertension Pulmonary: reports: None Endocrine/Autoimmune: reports: Type 2 diabetes Smoking Status: Never smoker Psychosocial: reports: Anxiety History of Cancer?: No - Obstetrical History : 1 Complications: reports: Gestational diabetes, induced HTN, Other (very large baby) Exam General: Alert, Oriented x3, Cooperative Dental: WNL Mouth Openin Fingerbreadth Neck Mobility: Normal Mallampati classification: III Thyromental Distance: less than 4 cm Respiratory: Lungs clear Cardiovascular: Regular rate Plan Anesthesia Type: Epidural Consent for Procedure(s) Verified and Reviewed: Yes Code Status: Attempt Resuscitation ASA classification: 3-Severe systemic disease Is this case an emergency?: No
[2023-10-04] MEDS ORDERED: METOCLOPRAMIDE 10 MG/2 ML VIAL IVP PRN ×2 (06:09→20:20)
[2023-10-04] MEDS ORDERED: LACTATED RINGERS 500 ML IV ONE (06:09)
[2023-10-04] MEDS ORDERED: NALOXONE 0.4 MG/ML VIAL IVP PRN ×3 (06:09→20:20)
[2023-10-04] MEDS ORDERED: ePHEDrine 50 MG/ML VIAL IVP PRN (06:09)
[2023-10-04] MEDS ORDERED: NALBUPHINE 10 MG/ML AMP IVP PRN (06:09)
[2023-10-04] MEDS ORDERED: diphenhydrAMINE INJ 50 MG/ML VIAL IVP PRN (06:09)
[2023-10-04] MEDS: AMPICILLIN 1 GM in SODIUM CHLORIDE 0.9% MINIBAG 100 ML IV SCH (08:44)
[2023-10-04] MEDS: OXYTOCIN/SODIUM CHLORIDE 500 ML IV SCH (09:33)
--- NOTE | 2023-10-04 11:11 | PHARMACY PROGRESS NOTE ---
- Best Possible Medication History Admit Date and Time: 10/03/23 1050 Processed by: Pharmacy Medications reviewed in ED?: Yes Medication History completed: Yes Patient Interview: Pt unable to participate Secondary Source(s): Insurance records As the person ultimately responsible for medication therapy, providers are able to order a medication from an existing home medication list in [facility] via the "Reconcile Routine" prior to Confirmation of that medication by sales support engineer. Such practice is discouraged except when the physician, in their clinical judgment, deems that a medical need exists for a medication without regard to previous use.
[2023-10-04] MEDS: ONDANSETRON 4 MG/2 ML VIAL IVP PRN (11:52)
[2023-10-04] MEDS: ROPIVACAINE 0.2% 200 MG/100 ML BAG EP PRN (14:13)
[2023-10-04] MEDS ORDERED: fentaNYL 100 MCG/2 ML VIAL ONE ×4 (15:17→18:54)
[2023-10-04] MEDS ORDERED: SODIUM CHLORIDE 0.9% 10 ML VIAL IVP ONE ×5 (15:17→19:28)
[2023-10-04] MEDS ORDERED: LIDOCAINE-PF 2% 10 ML AMP SUBQ ONE (15:18)
--- NOTE | 2023-10-04 15:38 | ANESTHESIA PROCEDURE NOTE ---
Anesthesia Epidural Template - Patient Report Patient Reports: positive: Inadequate control (Patient reports pain with co ntractions and pelvic/back pain. L1 level.) - Plan Plan: positive: Other (epidural dosed with 5ml 2% lidocaine with 100 mcg fentanyl and 5ml of PFNS. Epidural increased to 12ml every 50 mins PIEB. PCEA increased to 6ml every 10mins with 26ml lock out.)
[2023-10-04] MEDS ORDERED: ROPIVACAINE 0.2% 200 MG/100 ML BAG EP PRN (15:40)
[2023-10-04] MEDS ORDERED: METHYLERGONOVINE 0.2 MG/ML VIAL ONE (17:26)
[2023-10-04] MEDS ORDERED: CARBOPROST TROMETHAMINE 250 MCG/ML VIAL IM ONE (17:26)
[2023-10-04] MEDS ORDERED: OXYTOCIN 10 UNIT/ML VIAL ONE (17:29)
[2023-10-04] MEDS ORDERED: CITRIC ACID/SODIUM CITRATE 15 ML UDC PO ONE (17:36)
[2023-10-04] MEDS ORDERED: ceFAZolin 2 GM VIAL ONE (17:47)
[2023-10-04] MEDS ORDERED: MORPHINE PF 5 MG/10 ML VIAL ONE (17:51)
[2023-10-04] MEDS ORDERED: PHENYLEPHRINE HCL 0.5 MG/5 ML AMPULE ONE (17:52)
[2023-10-04] MEDS: ACETAMINOPHEN 1,000 MG/100 ML 1,000 MG/100 ML BAG IV ONE (17:55)
[2023-10-04] MEDS ORDERED: ONDANSETRON 4 MG/2 ML VIAL ONE (18:45)
[2023-10-04] MEDS ORDERED: DEXMEDETOMIDINE 200 MCG/2 ML VIAL ONE (19:17)
[2023-10-04] MEDS ORDERED: KETOROLAC 30 MG/ML VIAL ONE (19:20)
[2023-10-04] MEDS ORDERED: ROPIVACAINE 0.5% PF 20 ML VIAL ONE (19:24)
[2023-10-04] MEDS: LACTATED RINGERS 300 ML IV ONE (19:47)
[2023-10-04] MEDS ORDERED: LIDOCAINE 2%-EPI 1:100000 20 ML MDV ONE (20:01)
[2023-10-04] MEDS ORDERED: MORPHINE 2 MG/ML CARPUJECT IVP PRN (20:06)
[2023-10-04] MEDS ORDERED: HYDROmorphone 0.5 MG/0.5 ML SYRINGE IVP PRN (20:06)
[2023-10-04] MEDS ORDERED: ATROPINE ABBOJECT 1 MG/10 ML SYRINGE IVP PRN (20:06)
[2023-10-04] MEDS ORDERED: fentaNYL 100 MCG/2 ML VIAL IVP PRN (20:06)
[2023-10-04] MEDS ORDERED: ONDANSETRON 4 MG/2 ML VIAL IVP PRN (20:06)
--- NOTE | 2023-10-04 20:08 | ANESTHESIA PROCEDURE NOTE ---
Anesthesia Epidural Template - Patient Report Patient Reports: positive: Inadequate control (Pelvic and back pain with co ntractions.) - Plan Plan: positive: Other (Epidural dosed with 100mcg fentanyl and 9ml PFNS with some relief.)
--- NOTE | 2023-10-04 20:11 | ANESTHESIA POST OP EVALUATION ---
Anesthesia Post Eval - Post Anesthesia Eval Vitals: Last Vital Signs Temp 37.4 C 10/04/23 20:09 Pulse 79 10/04/23 20:09 Resp 14 10/04/23 20:09 BP 119/65 10/04/23 20:09 Pulse Ox 98 10/04/23 20:09 O2 Flow Rate CV Function Including HR & BP: Stable Pain Control: Satisfactory Nausea & Vomiting: Negative Mental Status: Baseline Respiratory Status: Airway Patent Hydration Status: Satisfactory Anesthesia Complications: None
[2023-10-04] MEDS ORDERED: diphenhydrAMINE 25 MG CAPSULE PO PRN (20:20)
[2023-10-04] MEDS ORDERED: hydrALAZINE INJ 20 MG/ML VIAL IVP PRN ×2 (20:20)
[2023-10-04] MEDS ORDERED: NIFEdipine 10 MG CAPSULE PO PRN (20:20)
[2023-10-04] MEDS ORDERED: CALCIUM CARBONATE CHEW 500 MG TABLET PO PRN (20:20)
[2023-10-04] MEDS ORDERED: SIMETHICONE CHEW 80 MG TABLET PO PRN (20:20)
[2023-10-04] MEDS ORDERED: LABETALOL 20 MG/4 ML SYRINGE IVP PRN ×3 (20:20)
[2023-10-04] MEDS ORDERED: OXYTOCIN/SODIUM CHLORIDE 500 ML IV PRN (20:20)
--- NOTE | 2023-10-04 20:54 | PROVIDER PROGRESS NOTE ---
Progress Note Patient examined this am. /3. agrees to AROM And this is done wihtout complication. lots of fluid. baby category 1. continue pitocin as needed.
--- NOTE | 2023-10-04 20:56 | PROVIDER PROGRESS NOTE ---
Progress Note very miserable, like the epidural wore off all of a sudden. allowed me to check her and she is 7 cm but baby is blottable. i pushed her up to let out a lot of fluid and Dev felt some less pressure but still pretty miserable. BIOLOGICAL CHEMIST came in to redose and that helped. baby Category 1.
[2023-10-04] MEDS ORDERED: LACTATED RINGERS 1,000 ML IV SCH (21:00)
--- NOTE | 2023-10-04 21:01 | HISTORY & PHYSICAL EXAMINATION ---
HPI - Admitted From Admitted from: OB - History of Present Illness Severity at the worst: reports: Severe (contraction and pressure, with little relief from epidural. ready for c section. last check by RN still 7 cm.) PMH/PSH - Past Medical History Cardiovascular: positive: Hypertension Respiratory: positive: None Endocrine/Autoimmune: positive: Type 2 diabetes Social & Family Hx - Social History Smoking Status: Never smoker Meds/Allgy - Home Medications Home Medications: Ambulatory Orders Medication Instructions Recorded Confirmed Metformin HCl [Metformin ER 500 mg PO BIDWM 10/03/23 10/03/23 Gastric] - Allergies Allergies/Adverse Reactions: Allergies Allergy/AdvReac Type Severity Reaction Status Date / Time Pertussis Vaccines Allergy Respiratory Verified 08/18/23 16:41 Review of Systems - Constitutional Constitutional: reports: Fatigue. denies: Fever - Gastrointestinal Gastrointestinal: denies: Vomiting Exam - Vital Signs Reviewed Vital Signs: Yes Vital Signs: Vital Signs x48h Temp Pulse Resp BP Pulse Ox 10/04/23 20:09 99.3 F 79 14 119/65 98 10/04/23 20:00 99.5 F 85 21 110/80 100 10/04/23 19:50 99.5 F 78 21 104/92 H 98 10/04/23 19:47 99.0 F 73 16 123/66 98 baby's heart tracing still category 1, no concerns. Results - Lab Results Fish Bones: 10/03/23 11:35 10/03/23 11:35 Impression/Plan - Problem List Problem List: term being induced for LGA, diabetes that seems to have resolved. Baby not descending. still out of pelvis at 7 cm and patient is no longer getting relief from epidural. likely baby is not fitting thru her pelvis. ready to proceed with c section. procedure reviewed. consents signed. team informed.
--- NOTE | 2023-10-04 21:57 | OPERATIVE REPORT ---
Operative Report - General Admit Date: 10/03/23 Procedure Date: 10/04/23 Planned Procedure: primary low transverse c section Pre-Op Diagnosis: arrest of descent Procedure Performed: as above Post Op Diagnosis: macrosomia - Procedure Note Primary Surgeon: Kait Sherwood MD Secondary Surgeon: MARIEL Andres Anesthesia Technique: Spinal Pathology: none IV Fluids (mL): 1,000 Estimated Blood Loss (mL): 400 Urine Output (mL): 75 Indications: induction for LGA, gdm that has improved. progressed to 7 cm but baby's head still not in pelvis. unable to get comfortable. Findings: live female infant weighing 10 lb 1.7 oz. in occiput transverse presentation. Normal appearing uterus, tubes and ovaries. Complications: none - Other Other Information/Narrative: Patient was in labor. baby not descending. unable to get comfortable with epidural. 7 cm. ready for delivery with c section. consents signed. brought to OR. Epidural removed and spinal anesthesia placed. prepped with vaginal and abdominal prep. Ancef 2 gm and Azithromycin 500 mg. SCDs on her LE. time out done. Anesthesia tested and found to be adequate. Incision made thru her abdominal scar from abdominoplasty. carried down to fascia which is transected midline. Fascia elevated inferiorly and then superiorly and rectus muscles disected off. Muscles in midline. incision space stretched. Peritoneum entered sharply. Stretched. You retractor placed. Uterus identified and was bulging uniformly. Low transverse uterine incision made with knife and digitally. Baby's head brought out of incision but not big enough incision to deliver. Extended a bit on right. Forceps blade put beneath baby's head as smaller than my hand. Baby able to be delivered. a tight squeeze. She is very large. Dryed off with towel and shown to parents thru the drape. Cord clamped and cut after close to a minute and baby handed off to auto appraiser. cord blood collected. placenta delivered with gentle traction. membranes a bit sticky and took some work to get out. Uterus did not have great tone but also barely bled. tone improved, only pitocin was given. Incision closed with running locked 0 Monocryl suture. A second horizontal imbricating layer placed. hemostatic after this. There were extension of the incsions bilaterally, easily incorporated into the closure. You retractor removed. Patient was very uncomfortable with all internal touch at this point. muscles were examined and not bleeding. Fascia was closed with running 0 Vicryl suture. Sub Q was closed with 3-0 Moncryl and skin was closed with 3-0 monocryl in subcuticular fashion. Dermabond placed. bandage over it once dry. given how uncomfortable she was TAP block was placed in addition to her duramorph for post op pain management. She was then brought back to her room in stable condition.
[2023-10-05] MEDS: ACETAMINOPHEN 500 MG TABLET PO SCH (01:38)
[2023-10-05] MEDS: KETOROLAC 30 MG/ML VIAL IVP SCH (01:38)
[2023-10-05 06:05] LABS: HCT - HEMATOCRIT 30.4 % (37.0-47.0); HGB - HEMOGLOBIN 9.6 g/dL (12.0-16.0); MEAN CORPUSCULAR HEMOGLOBIN 29.4 pg (27.0-31.0); MEAN CORPUSCULAR HGB CONC 31.6 g/dL (32.0-36.0); MEAN CORPUSCULAR VOLUME 93.3 fL (81.0-99.0); MEAN PLATELET VOLUME 11.6 fL (7.9-10.8); RED BLOOD COUNT 3.26 10^6/uL (4.20-5.40); RED CELL DISTRIBUTION WIDTH 14.3 % (12.0-15.0); WHITE BLOOD COUNT 13.1 x10^3/uL (4.8-10.8)
[2023-10-05 06:20] LABS: ALBUMIN 2.6 g/dL (3.2-5.5); ALBUMIN/GLOBULIN RATIO 1.1 (1.0-2.2); BILIRUBIN,TOTAL 0.3 mg/dL (0.2-1.0); CALCIUM 9.3 mg/dL (8.5-10.3); CREATININE 0.8 mg/dL (0.6-1.3); POTASSIUM 4.1 mmol/L (3.5-4.5); TOTAL PROTEIN 4.9 g/dL (6.4-8.9)
[2023-10-05] MEDS: DOCUSATE SODIUM 100 MG CAPSULE PO SCH (09:56)
[2023-10-05] MEDS: ENOXAPARIN 40 MG/0.4 ML SYRINGE SUBQ SCH (09:56)
[2023-10-05] MEDS: FUROSEMIDE 20 MG/2 ML VIAL IVP SCH (15:10)
[2023-10-05] MEDS: IRON DEXTRAN 1,000 MG in SODIUM CHLORIDE 0.9% 250 ML IV ONE (15:32)
[2023-10-05] MEDS: IBUPROFEN 600 MG TABLET PO SCH (20:01)
--- NOTE | 2023-10-05 20:11 | PROVIDER PROGRESS NOTE ---
Subjective - General Admit Date: 10/03/23 Procedure Date: 10/04/23 Post Op Days: 1 Procedure Performed: primary c section - Review of Systems Wound/Incisions: positive: Dressing dry and intact General: positive: No symptoms - Other Other Information/Narrative: sitting up working on . more swollen. overall feels pretty good. Objective - Patient Data Reviewed Vital Signs: Yes Vital Signs: Vital Signs x48h Temp Pulse Resp BP Pulse Ox 10/05/23 13:00 97.9 F 77 16 122/77 98 Weight: Weight 10/03/23 10/04/23 10/05/23 23:59 23:59 23:59 Weight (kg) 119.295 kg 119.295 kg Intake & Output: Intake and Output Totals x24h 10/03/23 10/04/23 10/05/23 23:59 23:59 23:59 Intake Total 351.434 770 Output Total 1650 220 Balance -1298.566 550 - Lab Results Lab Results: 10/05/23 05:37 10/05/23 05:37 Other Lab Results: Lab Results x24hrs 10/05/23 10/05/23 Range/Units 05:37 05:37 WBC 13.1 H (4.8-10.8) x10^3/uL RBC 3.26 L (4.20-5.40) 10^6/uL Hgb 9.6 L (12.0-16.0) g/dL Hct 30.4 L (37.0-47.0) % MCV 93.3 (81.0-99.0) fL MCH 29.4 (27.0-31.0) pg MCHC 31.6 L (32.0-36.0) g/dL RDW 14.3 (12.0-15.0) % Plt Count 193 (130-450) 10^3/uL MPV 11.6 H (7.9-10.8) fL Sodium 134 L (135-145) mmol/L Potassium 4.1 (3.5-4.5) mmol/L Chloride 106 (101-111) mmol/L Carbon Dioxide 22 (21-32) mmol/L Anion Gap 6.0 (6-13) BUN 15 (6-20) mg/dL Creatinine 0.8 (0.6-1.3) mg/dL Estimated GFR (MDRD) 81 L (>89) Glucose 103 (74-104) mg/dL Calcium 9.3 (8.5-10.3) mg/dL Total Bilirubin 0.3 (0.2-1.0) mg/dL AST 12 (10-42) IU/L ALT 4 L (10-60) IU/L Alkaline Phosphatase 88 (42-121) IU/L Total Protein 4.9 L (6.4-8.9) g/dL Albumin 2.6 L (3.2-5.5) g/dL Globulin 2.3 (2.1-4.2) g/dL Albumin/Globulin Ratio 1.1 (1.0-2.2) - Current Medications Current Medications: Current Medications Generic Name Dose Route Start Last Admin Trade Name Freq PRN Reason Stop Dose Admin Acetaminophen 1,000 mg 10/04/23 21:00 10/05/23 20:00 Acetaminophen 500 Mg Tablet PO 1,000 mg Q8H ISMAEL Administration Docusate Sodium 200 mg 10/04/23 21:00 10/05/23 09:56 Docusate Sodium 100 Mg Capsule PO 200 mg BID ISMAEL Administration Enoxaparin Sodium 40 mg 10/05/23 09:00 10/05/23 09:56 Enoxaparin 40 Mg/0.4 Ml Syringe SUBQ 40 mg DAILY ISMAEL Administration Furosemide 20 mg 10/05/23 14:50 10/05/23 15:10 Furosemide 20 Mg/2 Ml Vial IVP 20 mg DAILY ISMAEL Administration Lactated Ringer's 500 mls @ 999 mls/hr 10/03/23 10:50 10/05/23 17:44 Lr IV Infused PRN PRN Infusion NEEDED PER PROVIDER ORDERS Ibuprofen 600 mg 10/05/23 20:00 10/05/23 20:01 Ibuprofen 600 Mg Tablet PO 600 mg Q6H ISMAEL Administration Ondansetron HCl 4 mg 10/04/23 06:09 10/04/23 11:52 Ondansetron 4 Mg/2 Ml Vial IVP 4 mg Q6HR PRN Administration Nausea / Vomiting Sodium Chloride 10 ml 10/03/23 11:00 10/03/23 11:48 Sodium Chloride Flush 0.9% 10 Ml Syringe IVP 10 ml Q8H ISMAEL Administration Impression/Plan - Problem List Problem List: s/p c section for failure to descend/ macrosomia. doing very well. quite swollen. will give one dose iv lasix. anemia from acute blood loss will give her iv iron. probable discharge tomorrow.
[2023-10-06] MEDS: oxyCODONE 5 MG TABLET PO PRN (02:09)
[2023-10-06] MEDS ORDERED: FUROSEMIDE 20 MG/2 ML VIAL IVP SCH (09:00)
[2023-10-06 09:12] VITALS: BP 104/52; O2SAT 97
--- NOTE | 2023-10-06 15:13 | Labor Flowsheet ---
Labor Flowsheet Datetime Report Generated by CPN: 10/06/2023 15:13 Datetime: 10/04/2023 21:00 Stage of : Labor Datetime: 10/04/2023 20:50 Vital Sign Comments: transfer care recvd from rn homecare Datetime: 10/04/2023 18:02 Communication Comments: EFMs removed x2 and belly prep performed Datetime: 10/04/2023 18:00 VITAL SIGNS NBP Sys/Yamile/Mean (mmHg): 115 : 70 : 81 Pulse: 86 LaborFlag: Labor Datetime: 10/04/2023 17:18 MEDICATIONS Pitocin (milliunits): Discontinued Datetime: 10/04/2023 17:10 Antibiotics: Ampicillin IV 1 Gm Datetime: 10/04/2023 16:54 PAIN Pain Scale: 8 Pain Presence: Constant Pain Type: Burning; Crushing; Pressure Pain Location: Abdomen; Back Pain Relief Measures: Comfort Measures Pain Coping: Crying Datetime: 10/04/2023 16:42 VAGINAL EXAM Dilatation (cm): 8.0 Effacement (%): 10 Station: -2 Exam by: Beatriz Montanez RN Vaginal Exam Comments: Patient consent obtained prior to SVE. Exam unchanged. Datetime: 10/04/2023 16:28 PATIENT CARE Patient Position/Activity: Right Lateral Patient Care Comments: on peanut ball Datetime: 10/04/2023 16:15 COMMUNICATION Communication: RN Reviewed Strip Datetime: 10/04/2023 16:00 Frequency (min): 2.5-3.5 Duration (sec): 70-90 Pattern: Normal: <= 5 Contractions in 10 Minutes Pitocin Checklist: At Least 1 Acceleration of 15 bpm x 15 Seconds in 30 Minutes or Adequate Variabi lity; No More than 1 Late Deceleration Occurred in Past 30 Minutes; No More than 2 Variable Decelerat ions > 60 Seconds in Duration and decreasing >60 bpm in 30 minutes; No More than 5 Uterine Contractio ns in 10 Minutes for any 20 Minute Interval; Uterus Palpates Soft between Contractions; IUPC Resting Tone less than 25 mmHg ASSESSMENT A Monitor Mode: External US FHR Baseline Rate : 135 Variability: Moderate 6-25 bpm Accelerations: 15X15 Decelerations: None Category: Category I Datetime: 10/04/2023 15:17 Vaginal Bleeding: Normal Show Datetime: 10/04/2023 14:45 Cervix, Consistency: Soft Cervix, Position: Anterior Datetime: 10/04/2023 13:16 Comments: monitors changed out Hygiene: Dulce Care Datetime: 10/04/2023 13:00 UTERINE ACTIVITY Monitor Mode: External Datetime: 10/04/2023 11:53 Monitor Interventions for FHR: Ultrasound Adjusted Datetime: 10/04/2023 11:52 Antiemetics/Antacids: Zofran (mg) @ 4 Datetime: 10/04/2023 11:14 I/O Interventions: Ice Chips Given; Clear Liquids Given Datetime: 10/04/2023 10:32 Membrane Status: Ruptured Membranes Rupture Method: Artificial Amniotic Fluid Color: Clear Amniotic Fluid Amount: Small Amniotic Fluid Odor: None Datetime: 10/04/2023 10:00 Temperature (C): 36.9 Datetime: 10/04/2023 07:00 Quality: Moderate Resting Tone (Palpate): Relaxed Datetime: 10/04/2023 05:54 SpO2 (%): 98 Datetime: 10/04/2023 05:43 Epidural Procedure: Test Dose Datetime: 10/04/2023 05:36 Analgesics/Sedatives: Fentanyl (mcg) @ 50 Datetime: 10/04/2023 05:20 PROCEDURE TIME OUT Procedure Verify: Correct Patient Identity; Correct Side and Site are Marked; Accurate Procedure Co nsent Form; Agreement on Procedure to be Done; Correct Patient Position; Safety Precautions Based on Patient History or Medication Use ANESTHESIA Anesthesia Plans: Epidural Datetime: 10/04/2023 05:13 Anesthesia Comments: anesthesia at bedside for epidural consent Datetime: 10/04/2023 04:48 Provider Notified (Name): E. Mayorga, [employer] Datetime: 10/04/2023 03:47 Medication Comments: 50 mcg Datetime: 10/04/2023 00:00 FHR Baseline Changes: No Baseline Change Datetime: 10/03/2023 22:00 Monitor Interventions for UA: [place] Adjusted Datetime: 10/03/2023 19:50 Cervical Ripening Agents: [place] Balloon; Cytotec @ Datetime: 10/03/2023 19:00 Contraction Comments: Irregular contractions with uterine irritability
--- NOTE | 2023-10-07 17:33 | DISCHARGE SUMMARY ---
"Discharge Summary Admit Date: 10/03/23 Discharge Date: 10/06/23 Discharging Provider: Kait Sherwood MD Code Status: Attempt Resuscitation - DIAGNOSES Admission Diagnoses: labor induction at term. macrosomia Discharge Diagnoses with Status of Each Condition: same delivered by c section for failure to descend due to macrosomia. - HPI History of Present Illness: first . large for gestational age baby. admitted for induction. had GDM and was on metfromin but then sugars were too low so stopped it about 36 weeks. no htn. - CONSULTS | PROCEDURES Procedures: c section - HOSPITAL COURSE Hospital Course: admitted and misoprostol started for cervical ripening as cervix was closed. Then progressed enough for catheter to be placed. Pitocin started. very painful and got epidural. Catheter fell out. 7 cm but baby still not into pelvis. c section agreed upon and performed without complication. Baby weighed 10 pound 2 oz. post op course not remarkable. discharged home on pod #2. - ALLERGIES Allergies/Adverse Reactions: Allergies Allergy/AdvReac Type Severity Reaction Status Date / Time Pertussis Vaccines Allergy Respiratory Verified 08/18/23 16:41 - MEDICATIONS Home Medications: Ambulatory Orders Medication Instructions Recorded Confirmed Metformin HCl [Metformin ER 500 mg PO BIDWM 10/03/23 10/03/23 Gastric] Acetaminophen 650 mg PO Q4HR PRN #30 ea 10/06/23 Furosemide [Lasix] 20 mg PO DAILY PRN #10 tablet 10/06/23 Ibuprofen [Motrin] 600 mg PO Q6H PRN #30 tab 10/06/23 Ondansetron Odt [Zofran Odt] 4 mg TL Q6H PRN #10 tablet 10/06/23 oxyCODONE [Roxicodone] 5 mg PO Q4HR PRN #12 tab 10/06/23 - LABS Result Diagrams: 10/05/23 05:37 10/05/23 05:37"
== END 2023-10-06 14:30 | disposition home or self-care (01) | DRG 787 ==
LOC: WFO 09:09 → FBP 09:11 → WFO 10:50 → FBP 10:50
PROVIDERS: ADMIT Obstetrics & Gynecology; ATTEND Obstetrics & Gynecology
PROC: 3E0DXGC Introduction of Other Therapeutic Substance into Mouth and Pharynx, External Approach (ICD-10-PCS; 2023-10-03)
PROC: 4A1HXCZ Monitoring of Products of Conception, Cardiac Rate, External Approach (ICD-10-PCS; 2023-10-03)
PROC: 0U7C7ZZ Dilation of Cervix, Via Natural or Artificial Opening (ICD-10-PCS; 2023-10-04)
PROC: 10D00Z1 Extraction of Products of Conception, Low, Open Approach (ICD-10-PCS; principal; 2023-10-04 18:00)
DX: O36.63X0 Maternal care for excessive fetal growth, third trimester, not applicable or unspecified (principal); D62 Acute posthemorrhagic anemia; Z3A.37 37 weeks gestation of pregnancy; Z37.0 Single live birth; O24.429 Gestational diabetes mellitus in childbirth, unspecified control; O99.824 Streptococcus B carrier state complicating childbirth; O99.62 Diseases of the digestive system complicating childbirth; O90.81 Anemia of the puerperium; K21.9 Gastro-esophageal reflux disease without esophagitis; Z86.16 Personal history of COVID-19; Z79.82 Long term (current) use of aspirin; Z88.7 Allergy status to serum and vaccine
CPT/HCPCS: 36415; 80053; 83036; 85025; 85027; 86850; 86900; 86901; A9270; J0131; J1650; J1750; J2274; J2372; J2795; J7120